=== PATIENT | male | born 1945 | race Caucasian/White ===

== ENCOUNTER 2018-11-27 12:14 | Inpatient (IN) | payer MEDICARE, BC ==
[~2018-11-27] VITALS: Ht 177.8 cm; Wt 75.7 kg
[~2018-11-27 12:14] MED LIST: CARB1TAB22 PO; CLONAZEPAM1 MG PO; PRAM0.5T PO
[2018-11-27] MEDS ORDERED: IV NORMAL SALINE 1000ML BAG 1,000 ML IV SCH (12:30)
--- NOTE | 2018-11-27 12:34 | PHYS DOC ---
Past Medical History Past Medical History: High Cholesterol Additional Past Medical Histor: PARKINSONS Past Surgical History: No Surgical History Alcohol Use: None Drug Use: None Adult General Chief Complaint Chief Complaint: INSECT BITE HPI HPI Patient is a 73-year-old male, who was removing a beehive, when he was stung about 20 times, primarily on his scalp. He states he has one prior episode of a bee sting when he developed "an allergic reaction" but he is uncertain exactly what the reaction was. EMS was called, and the patient was given 50 mg the Benadryl intravenously, and 0.3 mg of epinephrine intramuscularly. He reports generalized fatigue at this time. He denies any focal pain, shortness of breath, lightheadedness, headache, chest pain, or any focal weakness. There are no alleviating or exacerbating factors to his symptoms. Review of Systems Review of Systems Constitutional: Denies fever or chills [] Eyes: Denies change in visual acuity, redness, or eye pain [] HENT: Denies nasal congestion or sore throat [] Respiratory: Denies cough or shortness of breath [] Cardiovascular: The patient denies any shortness of breath, chest pain, pa lpitations, or orthopnea[] GI: Denies abdominal pain, nausea, vomiting, bloody stools or diarrhea [] : Denies dysuria or hematuria [] Musculoskeletal: Denies back pain or joint pain [] Integument: Denies rash or skin lesions [] Neurologic: Denies headache, focal weakness or sensory changes [] Endocrine: Denies polyuria or polydipsia [] All other systems were reviewed and found to be within normal limits, except as documented in this note. Current Medications Current Medications Current Medications Medications (Trade) Dose Ordered Sig/[facility] Start Time Stop Time Status Last Admin Dose Admin Aspirin (Children'S Aspirin) 324 mg 1X ONCE 11/27/18 16:00 11/27/18 16:01 Famotidine (Pepcid Vial) 20 mg 1X ONCE 11/27/18 12:45 11/27/18 12:46 DC 11/27/18 12:54 20 MG Sodium Chloride 1,000 ml @ 1,000 mls/hr Q1H 11/27/18 12:30 11/27/18 13:29 DC 11/27/18 12:50 1,000 MLS/HR Allergies Allergies Allergies Coded Allergies Type Severity Reaction Last Updated Verified No Known Drug Allergies 03/14/18 No Physical Exam Physical Exam PHYSICAL EXAM: CONSTITUTIONAL: Well developed, well nourished HEAD: normocephalic, atraumatic EENT: PERRL, EOMI. Conjunctivae normal color, sclerae non-icteric; moist mucous membranes. NECK: Supple, non-tender; no meningismus. LUNGS: Lungs CTA, breathing even and unlabored. Normal air movement. HEART: Regular rate and rhythm, no murmur CHEST: No deformity; non-tender ABDOMEN: The abdomen is soft, and non-tender, no masses or bruits. EXTREM: Normal ROM; no deformity, no calf tenderness. Normal pulses palpable in all extremities. There is no pedal edema. SKIN: No rash; no diaphoresis NEURO: Alert; normal speech and cognition; CN's grossly intact; strength grossly intact without focal deficit. Cogwheel rigidity is noted in the extremities. BACK: No CVA TTP. Current Patient Data Vital Signs Vital Signs Date Time Temp Pulse Resp B/P (MAP) Pulse Ox O2 Delivery O2 Flow Rate FiO2 11/27/18 12:28 97.9 79 18 169/73 (105) 98 Room Air 97.9 Lab Values Laboratory Tests Test 11/27/18 13:03 11/27/18 15:12 White Blood Count 10.3 x10^3/uL (4.0-11.0) Red Blood Count 4.21 x10^6/uL (4.30-5.70) L Hemoglobin 14.1 g/dL (13.0-17.5) Hematocrit 41.2 % (39.0-53.0) Mean Corpuscular Volume 98 fL (79-100) Mean Corpuscular Hemoglobin 34 pg (25-35) Mean Corpuscular Hemoglobin Concent 34 g/dL (31-37) Red Cell Distribution Width 13.2 % (11.5-14.5) Platelet Count 187 x10^3/uL (140-400) Neutrophils (%) (Auto) 90 % (31-73) H Lymphocytes (%) (Auto) 6 % (24-48) L Monocytes (%) (Auto) 4 % (0-9) Eosinophils (%) (Auto) 0 % (0-3) Basophils (%) (Auto) 0 % (0-3) Neutrophils # (Auto) 9.2 x10^3/uL (1.8-7.7) H Lymphocytes # (Auto) 0.6 x10^3/uL (1.0-4.8) L Monocytes # (Auto) 0.4 x10^3/uL (0.0-1.1) Eosinophils # (Auto) 0.0 x10^3/uL (0.0-0.7) Basophils # (Auto) 0.0 x10^3/uL (0.0-0.2) Segmented Neutrophils % 72 % (35-66) H Band Neutrophils % 9 % (0-9) Lymphocytes % 10 % (24-48) L Monocytes % 8 % (0-10) Eosinophils % 1 % (0-5) Platelet Estimate Adequate (ADEQUATE) Sodium Level 142 mmol/L (136-145) Potassium Level 4.2 mmol/L (3.5-5.1) Chloride Level 105 mmol/L (98-107) Carbon Dioxide Level 30 mmol/L (21-32) Anion Gap 7 (6-14) Blood Urea Nitrogen 12 mg/dL (8-26) Creatinine 1.1 mg/dL (0.7-1.3) Estimated GFR (Cockcroft-Gault) 66.0 Glucose Level 155 mg/dL (70-99) H Calcium Level 9.6 mg/dL (8.5-10.1) Troponin I Quantitative 0.061 ng/mL (0.000-0.055) 0.289 ng/mL (0.000-0.055) Laboratory Tests 11/27/18 13:03 Laboratory Tests 11/27/18 13:03 EKG EKG [] Normal sinus rhythm a rate of 82 beats for minute, left axis deviation, normal intervals, there are no acute ischemic ST/T changes. Repeat EKG, done at approximately 4 PM, shows no acute change or ischemic changes compared to patient's prior EKG. Radiology/Procedures Radiology/Procedures [] Course & Med Decision Making Course & Med Decision Making Pertinent Lab studies reviewed. (See chart for details) []4:00 PM: The patient's condition remains stable. His troponin has serially elevated. The etiology of this is uncertain, the patient appears much more coherent and strong at this time. It is possible that his elevated troponin is secondary either to the epinephrine her stress from an allergic reaction, the hospitalist was consulted and will admit the patient for further observation and treatment. Dragon Disclaimer Dragon Disclaimer This electronic medical record was generated, in whole or in part, using a voice recognition dictation system. Departure Departure Impression: Primary Impression: Allergic reaction Additional Impression: Elevated troponin Disposition: 09 ADMITTED INPATIENT Admitting Physician: DONALD Condition: STABLE Referrals: ANTOINE HALL MD (PCP) Problem Qualifiers DIANA INFANTE MD Nov 27, 2018 12:34
[2018-11-27] MEDS ORDERED: FAMOTIDINE 20 MG/2 ML VIAL IVP ONE (12:45)
[2018-11-27 13:15] LABS: BASO % 0 % (0-3); EOS % 0 % (0-3); HEMATOCRIT 41.2 % (39.0-53.0); HEMOGLOBIN 14.1 g/dL (13.0-17.5); LYMPH # 0.6 x10^3/uL (1.0-4.8); LYMPH % 6 % (24-48); MEAN CORPUSCULAR HEMOGLOBIN 34 pg (25-35); MEAN CORPUSCULAR HGB CONC 34 g/dL (31-37); MEAN CORPUSCULAR VOLUME 98 fL (79-100); MONO # 0.4 x10^3/uL (0.0-1.1); MONO % 4 % (0-9); NEUT # 9.2 x10^3/uL (1.8-7.7); NEUT % 90 % (31-73); PLATELET COUNT 187 x10^3/uL (140-400); RED BLOOD COUNT 4.21 x10^6/uL (4.30-5.70); RED CELL DISTRIBUTION WIDTH 13.2 % (11.5-14.5); WHITE BLOOD COUNT 10.3 x10^3/uL (4.0-11.0)
[2018-11-27 13:27] LABS: CALCIUM 9.6 mg/dL (8.5-10.1); CREATININE 1.1 mg/dL (0.7-1.3); POTASSIUM 4.2 mmol/L (3.5-5.1)
--- NOTE | 2018-11-27 13:58 | EKG ---
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
[2018-11-27 14:48] LABS: % BANDS 9 % (0-9); % EOS 1 % (0-5); % LYMPHS 10 % (24-48); % MONOS 8 % (0-10); % SEGS 72 % (35-66)
[2018-11-27 14:49] LABS: PLT ESTIMATE ADEQUATE (ADEQUATE)
[2018-11-27] MEDS ORDERED: ASPIRIN CHEWABLE 81 MG TABLET. PO ONE (16:00)
--- NOTE | 2018-11-27 16:05 | EKG ---
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
--- NOTE | 2018-11-27 17:35 | PDOC1 ---
History and Physical Date of Admission Date of Admission DATE: 11/27/18 TIME: 17:33 Identification/Chief Complaint Chief Complaint SEEN IN ER , 73-year-old male, who was removing a beehive, when he was stung about 20 times, primarily on his scalp., LIPS, He states he has one prior episode of a bee sting when he developed "an allergic reaction" but he is uncertain exactly what the reaction was. EMS was called, and the patient was given 50 mg the Benadryl intravenously, and 0.3 mg of epinephrine intramuscularly. He reports generalized fatigue at this time. He denies any focal pain, shortness of breath, lightheadedness, headache, chest pain, or any focal weakness. LIPS SWOLLEN SLIGHTLY. Past Medical History Past Medical History Past Medical History Past Medical History: High Cholesterol Additional Past Medical Histor: PARKINSONS Past Surgical History: No Surgical History Alcohol Use: None Drug Use: None PAST MEDICAL HISTORY: Significant for history of Parkinson's. No significant history of tobacco use. No prior history of pneumothorax. History of night terrors. PAST SURGICAL HISTORY: Hernia repair. SOCIAL HISTORY: Nonsmoker. Lives with his . ALLERGIES: None. FHX HYPERLIPIDEMIA Cardiovascular: HTN CENTRAL NERVOUS SYSTEM: Other (parkinson's ) Past Surgical History Past Surgical History: Hernia Repair Family History Family History: No Significant, High Cholestrol Social History Smoke: No ALCOHOL: none Drugs: None Current Problem List Problem List Problems Medical Problems: (1) Allergic reaction Status: Acute (2) Elevated troponin Status: Acute Current Medications Current Medications Current Medications Sodium Chloride 1,000 ml @ 1,000 mls/hr Q1H IV Last administered on 11/27/18at 12:50; Start 11/27/18 at 12:30; Stop 11/27/18 at 13:29; Status DC Famotidine (Pepcid Vial) 20 mg 1X ONCE IVP Last administered on 11/27/18at 12:54; Start 11/27/18 at 12:45; Stop 11/27/18 at 12:46; Status DC Aspirin (Children'S Aspirin) 324 mg 1X ONCE PO Last administered on 11/27/18at 16:17; Start 11/27/18 at 16:00; Stop 11/27/18 at 16:01; Status DC Active Scripts Active Reported Clonazepam 1 Mg Tablet 1.5 Tab PO QHS Pramipexole Dihydrochloride (Pramipexole Di-Hcl) 0.5 Mg Tablet 0.5 Mg PO TID Carbidopa-Levodopa 25-100 Tab (Carbidopa/Levodopa) 1 Each Tablet 25-100 Mg PO QID Allergies Allergies: Coded Allergies: No Known Drug Allergies (Unverified , 03/14/18) ROS Review of System Review of Systems Review of Systems Constitutional: Denies fever or chills [] Eyes: Denies change in visual acuity, redness, or eye pain [] LIPS LESS SWOLLEN AFTER STINGERS REMOVED RIGHT UPPER LIP HENT: Denies nasal congestion or sore throat [] Respiratory: Denies cough or shortness of breath [] Cardiovascular: The patient denies any shortness of breath, chest pain, palpitations, or orthopnea[] GI: Denies abdominal pain, nausea, vomiting, bloody stools or diarrhea [] : Denies dysuria or hematuria [] Musculoskeletal: Denies back pain or joint pain [] Integument: Denies rash or skin lesions [] Neurologic: Denies headache, focal weakness or sensory changes [] Endocrine: Denies polyuria or polydipsia [] 14 PT systems were reviewed and found to be within normal limits, except as documented Physical Exam Physical Exam Physical Exam Physical Exam PHYSICAL EXAM: CONSTITUTIONAL: Well developed, well nourished HEAD: normocephalic, atraumatic EENT: PERRL, EOMI. Conjunctivae normal color, sclerae non-icteric; moist mucous membranes. NECK: Supple, non-tender; no meningismus. LUNGS: Lungs CTA, breathing even and unlabored. Normal air movement. HEART: Regular rate and rhythm, no murmur CHEST: No deformity; non-tender ABDOMEN: The abdomen is soft, and non-tender, no masses or bruits. EXTREM: Normal ROM; no deformity, no calf tenderness. Normal pulses palpable in all extremities. There is no pedal edema. SKIN: No rash; no diaphoresis NEURO: Alert; normal speech and cognition; CN's grossly intact; strength grossly intact without focal deficit. Cogwheel rigidity is noted in the extremities. BACK: No CVA TTP. General: Alert, Oriented X3, Cooperative, No acute distress, mild distress HEENT: EOMI, Mucous membr. moist/pink Lungs: Clear to auscultation, Normal air movement Heart: RRR Breasts: Not examined Abdomen: Normal bowel sounds, Soft Rectal Exam: not examined PELVIC: Examination not indicated Extremities: No cyanosis Neuro: Normal speech, Strength at 5/5 X4 ext, Cranial nerves 3-12 NL Psych/Mental Status: Mental status NL, Mood NL Vitals Vitals Vital Signs Date Time Temp Pulse Resp B/P (MAP) Pulse Ox O2 Delivery O2 Flow Rate FiO2 11/27/18 17:14 78 16 133/59 (83) 98 Room Air 11/27/18 12:28 97.9 97.9 Labs Labs Laboratory Tests Test 11/27/18 13:03 11/27/18 15:12 White Blood Count 10.3 x10^3/uL (4.0-11.0) Red Blood Count 4.21 x10^6/uL (4.30-5.70) Hemoglobin 14.1 g/dL (13.0-17.5) Hematocrit 41.2 % (39.0-53.0) Mean Corpuscular Volume 98 fL (79-100) Mean Corpuscular Hemoglobin 34 pg (25-35) Mean Corpuscular Hemoglobin Concent 34 g/dL (31-37) Red Cell Distribution Width 13.2 % (11.5-14.5) Platelet Count 187 x10^3/uL (140-400) Neutrophils (%) (Auto) 90 % (31-73) Lymphocytes (%) (Auto) 6 % (24-48) Monocytes (%) (Auto) 4 % (0-9) Eosinophils (%) (Auto) 0 % (0-3) Basophils (%) (Auto) 0 % (0-3) Neutrophils # (Auto) 9.2 x10^3/uL (1.8-7.7) Lymphocytes # (Auto) 0.6 x10^3/uL (1.0-4.8) Monocytes # (Auto) 0.4 x10^3/uL (0.0-1.1) Eosinophils # (Auto) 0.0 x10^3/uL (0.0-0.7) Basophils # (Auto) 0.0 x10^3/uL (0.0-0.2) Segmented Neutrophils % 72 % (35-66) Band Neutrophils % 9 % (0-9) Lymphocytes % 10 % (24-48) Monocytes % 8 % (0-10) Eosinophils % 1 % (0-5) Platelet Estimate Adequate (ADEQUATE) Sodium Level 142 mmol/L (136-145) Potassium Level 4.2 mmol/L (3.5-5.1) Chloride Level 105 mmol/L (98-107) Carbon Dioxide Level 30 mmol/L (21-32) Anion Gap 7 (6-14) Blood Urea Nitrogen 12 mg/dL (8-26) Creatinine 1.1 mg/dL (0.7-1.3) Estimated GFR (Cockcroft-Gault) 66.0 Glucose Level 155 mg/dL (70-99) Calcium Level 9.6 mg/dL (8.5-10.1) Troponin I Quantitative 0.061 ng/mL (0.000-0.055) 0.289 ng/mL (0.000-0.055) Laboratory Tests Test 11/27/18 13:03 11/27/18 15:12 White Blood Count 10.3 x10^3/uL (4.0-11.0) Red Blood Count 4.21 x10^6/uL (4.30-5.70) Hemoglobin 14.1 g/dL (13.0-17.5) Hematocrit 41.2 % (39.0-53.0) Mean Corpuscular Volume 98 fL (79-100) Mean Corpuscular Hemoglobin 34 pg (25-35) Mean Corpuscular Hemoglobin Concent 34 g/dL (31-37) Red Cell Distribution Width 13.2 % (11.5-14.5) Platelet Count 187 x10^3/uL (140-400) Neutrophils (%) (Auto) 90 % (31-73) Lymphocytes (%) (Auto) 6 % (24-48) Monocytes (%) (Auto) 4 % (0-9) Eosinophils (%) (Auto) 0 % (0-3) Basophils (%) (Auto) 0 % (0-3) Neutrophils # (Auto) 9.2 x10^3/uL (1.8-7.7) Lymphocytes # (Auto) 0.6 x10^3/uL (1.0-4.8) Monocytes # (Auto) 0.4 x10^3/uL (0.0-1.1) Eosinophils # (Auto) 0.0 x10^3/uL (0.0-0.7) Basophils # (Auto) 0.0 x10^3/uL (0.0-0.2) Segmented Neutrophils % 72 % (35-66) Band Neutrophils % 9 % (0-9) Lymphocytes % 10 % (24-48) Monocytes % 8 % (0-10) Eosinophils % 1 % (0-5) Platelet Estimate Adequate (ADEQUATE) Sodium Level 142 mmol/L (136-145) Potassium Level 4.2 mmol/L (3.5-5.1) Chloride Level 105 mmol/L (98-107) Carbon Dioxide Level 30 mmol/L (21-32) Anion Gap 7 (6-14) Blood Urea Nitrogen 12 mg/dL (8-26) Creatinine 1.1 mg/dL (0.7-1.3) Estimated GFR (Cockcroft-Gault) 66.0 Glucose Level 155 mg/dL (70-99) Calcium Level 9.6 mg/dL (8.5-10.1) Troponin I Quantitative 0.061 ng/mL (0.000-0.055) 0.289 ng/mL (0.000-0.055) VTE Prophylaxis Ordered VTE Prophylaxis Devices: No VTE Pharmacological Prophylaxi: Yes Assessment/Plan Assessment/Plan IMPRESSION 1. MULTIPLE BEE STINGS WITH ANAPHYLAXIS 2. Parkinson's disease with bradykinesia 3. troponin i elevation PLAN ADMIT IV STEROID TAPER IV BENADRYl 25 MG Q 6 HRS dvt prophylaxis cardiology consult echo serial troponin i iv pepsid bid 56 min pt exam, chart review, > 50% of time spent with exam, chart review, pt care coordination VENANCIO BENSON MD Nov 27, 2018 17:35
[2018-11-27] MEDS ORDERED: diphenhydrAMINE 50 MG/ML VIAL IVP PRN (17:45)
[2018-11-27 19:20] VITALS: BP 114/57
[2018-11-27] MEDS: HEPARIN for SUB-Q USE 5,000 UNIT/ML VIAL. SQ SCH (22:00)
[2018-11-27] MEDS: PRAMIPEXOLE 0.25 MG TABLET. PO SCH (23:10)
[2018-11-27] MEDS: CARBIDOPA/LEVODOPA 25/100MG TABLET PO SCH (23:11)
[2018-11-27] MEDS: clonazePAM 0.5 MG TABLET PO SCH (23:11)
[2018-11-27] MEDS: methylPREDNISolone SOD SUCC PF 125 MG/2 ML VIAL. IV SCH (23:11)
[2018-11-27 23:34] VITALS: BP 94/40
[2018-11-28 03:09] VITALS: BP 104/44
[2018-11-28] MEDS: HEPARIN for SUB-Q USE 5,000 UNIT/ML VIAL. SQ SCH ×3 (06:00→21:41)
[2018-11-28] MEDS: methylPREDNISolone SOD SUCC PF 125 MG/2 ML VIAL. IV SCH ×2 (06:23→16:26)
[2018-11-28 07:00] VITALS: BP 107/45
--- NOTE | 2018-11-28 07:30 | PDOC ---
PROGRESS NOTES History of Present Illness History of Present Illness VTE Prophylaxis Ordered VTE Prophylaxis Devices: No VTE Pharmacological Prophylaxi: Yes Assessment/Plan Assessment/Plan IMPRESSION 1. MULTIPLE BEE STINGS WITH ANAPHYLAXIS 2. Parkinson's disease with bradykinesia 3. troponin i elevation PLAN ADMIT IV STEROID TAPER IV BENADRYl 25 MG Q 6 HRS dvt prophylaxis cardiology consult echo serial troponin i iv pepsid bid 39 min pt exam, chart review, > 50% of time spent with exam, chart review, pt care coordination Vitals Vitals Vital Signs Date Time Temp Pulse Resp B/P (MAP) Pulse Ox O2 Delivery O2 Flow Rate FiO2 11/28/18 03:09 99.6 62 18 104/44 (64) 98 Room Air 99.6 Physical Exam General: Alert, Oriented X3, Cooperative, No acute distress Heart: Regular rate, Normal S1, Normal S2 Lungs: Clear Abdomen: Normal bowel sounds, Soft Extremities: No clubbing, No cyanosis, No edema Skin: No significant lesion Labs LABS Laboratory Tests Test 11/27/18 13:03 11/27/18 15:12 11/28/18 03:30 White Blood Count 10.3 x10^3/uL (4.0-11.0) Red Blood Count 4.21 x10^6/uL (4.30-5.70) Hemoglobin 14.1 g/dL (13.0-17.5) Hematocrit 41.2 % (39.0-53.0) Mean Corpuscular Volume 98 fL (79-100) Mean Corpuscular Hemoglobin 34 pg (25-35) Mean Corpuscular Hemoglobin Concent 34 g/dL (31-37) Red Cell Distribution Width 13.2 % (11.5-14.5) Platelet Count 187 x10^3/uL (140-400) Neutrophils (%) (Auto) 90 % (31-73) Lymphocytes (%) (Auto) 6 % (24-48) Monocytes (%) (Auto) 4 % (0-9) Eosinophils (%) (Auto) 0 % (0-3) Basophils (%) (Auto) 0 % (0-3) Neutrophils # (Auto) 9.2 x10^3/uL (1.8-7.7) Lymphocytes # (Auto) 0.6 x10^3/uL (1.0-4.8) Monocytes # (Auto) 0.4 x10^3/uL (0.0-1.1) Eosinophils # (Auto) 0.0 x10^3/uL (0.0-0.7) Basophils # (Auto) 0.0 x10^3/uL (0.0-0.2) Segmented Neutrophils % 72 % (35-66) Band Neutrophils % 9 % (0-9) Lymphocytes % 10 % (24-48) Monocytes % 8 % (0-10) Eosinophils % 1 % (0-5) Platelet Estimate Adequate (ADEQUATE) Sodium Level 142 mmol/L (136-145) Potassium Level 4.2 mmol/L (3.5-5.1) Chloride Level 105 mmol/L (98-107) Carbon Dioxide Level 30 mmol/L (21-32) Anion Gap 7 (6-14) Blood Urea Nitrogen 12 mg/dL (8-26) Creatinine 1.1 mg/dL (0.7-1.3) Estimated GFR (Cockcroft-Gault) 66.0 Glucose Level 155 mg/dL (70-99) Calcium Level 9.6 mg/dL (8.5-10.1) Troponin I Quantitative 0.061 ng/mL (0.000-0.055) 0.289 ng/mL (0.000-0.055) 0.045 ng/mL (0.000-0.055) Assessment and Plan Assessmemt and Plan Problems Medical Problems: (1) Allergic reaction Status: Acute (2) Anaphylactic reaction to bee sting Status: Acute (3) Elevated troponin Status: Acute (4) Parkinson disease Status: Chronic Comment Review of Relevant I have reviewed the following items dori (where applicable) has been applied. Labs Laboratory Tests Test 11/27/18 13:03 11/27/18 15:12 11/28/18 03:30 White Blood Count 10.3 x10^3/uL (4.0-11.0) Red Blood Count 4.21 x10^6/uL (4.30-5.70) Hemoglobin 14.1 g/dL (13.0-17.5) Hematocrit 41.2 % (39.0-53.0) Mean Corpuscular Volume 98 fL (79-100) Mean Corpuscular Hemoglobin 34 pg (25-35) Mean Corpuscular Hemoglobin Concent 34 g/dL (31-37) Red Cell Distribution Width 13.2 % (11.5-14.5) Platelet Count 187 x10^3/uL (140-400) Neutrophils (%) (Auto) 90 % (31-73) Lymphocytes (%) (Auto) 6 % (24-48) Monocytes (%) (Auto) 4 % (0-9) Eosinophils (%) (Auto) 0 % (0-3) Basophils (%) (Auto) 0 % (0-3) Neutrophils # (Auto) 9.2 x10^3/uL (1.8-7.7) Lymphocytes # (Auto) 0.6 x10^3/uL (1.0-4.8) Monocytes # (Auto) 0.4 x10^3/uL (0.0-1.1) Eosinophils # (Auto) 0.0 x10^3/uL (0.0-0.7) Basophils # (Auto) 0.0 x10^3/uL (0.0-0.2) Segmented Neutrophils % 72 % (35-66) Band Neutrophils % 9 % (0-9) Lymphocytes % 10 % (24-48) Monocytes % 8 % (0-10) Eosinophils % 1 % (0-5) Platelet Estimate Adequate (ADEQUATE) Sodium Level 142 mmol/L (136-145) Potassium Level 4.2 mmol/L (3.5-5.1) Chloride Level 105 mmol/L (98-107) Carbon Dioxide Level 30 mmol/L (21-32) Anion Gap 7 (6-14) Blood Urea Nitrogen 12 mg/dL (8-26) Creatinine 1.1 mg/dL (0.7-1.3) Estimated GFR (Cockcroft-Gault) 66.0 Glucose Level 155 mg/dL (70-99) Calcium Level 9.6 mg/dL (8.5-10.1) Troponin I Quantitative 0.061 ng/mL (0.000-0.055) 0.289 ng/mL (0.000-0.055) 0.045 ng/mL (0.000-0.055) Laboratory Tests Test 11/27/18 13:03 11/27/18 15:12 11/28/18 03:30 White Blood Count 10.3 x10^3/uL (4.0-11.0) Red Blood Count 4.21 x10^6/uL (4.30-5.70) Hemoglobin 14.1 g/dL (13.0-17.5) Hematocrit 41.2 % (39.0-53.0) Mean Corpuscular Volume 98 fL (79-100) Mean Corpuscular Hemoglobin 34 pg (25-35) Mean Corpuscular Hemoglobin Concent 34 g/dL (31-37) Red Cell Distribution Width 13.2 % (11.5-14.5) Platelet Count 187 x10^3/uL (140-400) Neutrophils (%) (Auto) 90 % (31-73) Lymphocytes (%) (Auto) 6 % (24-48) Monocytes (%) (Auto) 4 % (0-9) Eosinophils (%) (Auto) 0 % (0-3) Basophils (%) (Auto) 0 % (0-3) Neutrophils # (Auto) 9.2 x10^3/uL (1.8-7.7) Lymphocytes # (Auto) 0.6 x10^3/uL (1.0-4.8) Monocytes # (Auto) 0.4 x10^3/uL (0.0-1.1) Eosinophils # (Auto) 0.0 x10^3/uL (0.0-0.7) Basophils # (Auto) 0.0 x10^3/uL (0.0-0.2) Segmented Neutrophils % 72 % (35-66) Band Neutrophils % 9 % (0-9) Lymphocytes % 10 % (24-48) Monocytes % 8 % (0-10) Eosinophils % 1 % (0-5) Platelet Estimate Adequate (ADEQUATE) Sodium Level 142 mmol/L (136-145) Potassium Level 4.2 mmol/L (3.5-5.1) Chloride Level 105 mmol/L (98-107) Carbon Dioxide Level 30 mmol/L (21-32) Anion Gap 7 (6-14) Blood Urea Nitrogen 12 mg/dL (8-26) Creatinine 1.1 mg/dL (0.7-1.3) Estimated GFR (Cockcroft-Gault) 66.0 Glucose Level 155 mg/dL (70-99) Calcium Level 9.6 mg/dL (8.5-10.1) Troponin I Quantitative 0.061 ng/mL (0.000-0.055) 0.289 ng/mL (0.000-0.055) 0.045 ng/mL (0.000-0.055) Medications Current Medications Sodium Chloride 1,000 ml @ 1,000 mls/hr Q1H IV Last administered on 11/27/18at 12:50; Start 11/27/18 at 12:30; Stop 11/27/18 at 13:29; Status DC Famotidine (Pepcid Vial) 20 mg 1X ONCE IVP Last administered on 11/27/18at 12:54; Start 11/27/18 at 12:45; Stop 11/27/18 at 12:46; Status DC Aspirin (Children'S Aspirin) 324 mg 1X ONCE PO Last administered on 11/27/18at 16:17; Start 11/27/18 at 16:00; Stop 11/27/18 at 16:01; Status DC Methylprednisolone Sodium Succinate (SOLU-Medrol 125MG VIAL) 125 mg Q8HRS IV Last administered on 11/28/18at 06:23; Start 11/27/18 at 22:00; Stop 11/28/18 at 14:01 Methylprednisolone Sodium Succinate (SOLU-Medrol 125MG VIAL) 80 mg Q8HRS IV ; Start 11/28/18 at 22:00; Stop 11/29/18 at 14:01 Diphenhydramine HCl (Benadryl) 25 mg PRN Q6HRS PRN IVP ITCHING; Start 11/27/18 at 17:45; Stop 11/28/18 at 12:00 Carbidopa/Levodopa (Sinemet 25/100) 1 tab QID PO Last administered on 11/27/18at 23:11; Start 11/27/18 at 21:00 Clonazepam (KlonoPIN) 1.5 mg QHS PO Last administered on 11/27/18at 23:11; Start 11/27/18 at 21:00 Pramipexole Dihydrochloride (miraPEX) 0.5 mg [id number] PO Last administered on 11/27/18at 23:10; Start 11/27/18 at 21:00 Heparin Sodium (Porcine) (Heparin Sodium) 5,000 unit Q8HRS SQ ; Start 11/27/18 at 22:00 Active Scripts Active Reported Clonazepam 1 Mg Tablet 1.5 Tab PO QHS Pramipexole Dihydrochloride (Pramipexole Di-Hcl) 0.5 Mg Tablet 0.5 Mg PO TID Carbidopa-Levodopa 25-100 Tab (Carbidopa/Levodopa) 1 Each Tablet 25-100 Mg PO QID Vitals/I & O Vital Sign - Last 24 Hours 11/27/18 11/27/18 11/27/18 11/27/18 12:28 13:30 14:30 15:30 Temp 97.9 97.9 Pulse 79 80 70 70 Resp 18 16 16 18 B/P (MAP) 169/73 (105) 139/63 (88) 100/54 (69) 132/65 (87) Pulse Ox 98 99 96 100 O2 Delivery Room Air Room Air Room Air Room Air 11/27/18 11/27/18 11/27/18 11/27/18 16:21 17:14 18:19 19:20 Temp 97.9 97.9 Pulse 78 78 69 77 Resp 18 16 18 18 B/P (MAP) 148/70 (96) 133/59 (83) 98/51 (67) 114/57 (76) Pulse Ox 98 98 96 99 O2 Delivery Room Air Room Air Room Air Room Air 11/27/18 11/28/18 23:34 03:09 Temp 97.7 99.6 97.7 99.6 Pulse 56 62 Resp 18 18 B/P (MAP) 94/40 (58) 104/44 (64) Pulse Ox 97 98 O2 Delivery Room Air Room Air Intake and Output 11/27/18 11/27/18 11/28/18 15:00 23:00 07:00 Intake Total 1000 ml 250 ml 200 ml Output Total 420 ml Balance 1000 ml 250 ml -220 ml VENANCIO BENSON MD Nov 28, 2018 07:30
[2018-11-28] MEDS: CARBIDOPA/LEVODOPA 25/100MG TABLET PO SCH ×4 (08:24→21:36)
[2018-11-28] MEDS: PRAMIPEXOLE 0.25 MG TABLET. PO SCH ×3 (08:24→21:00)
--- NOTE | 2018-11-28 09:26 | PDOC2 ---
CARDIAC CONSULT DATE OF CONSULT Date of Consult DATE: 11/28/18 TIME: 08:53 REASON FOR CONSULT Reason for Consult: Bee sting, elevated troponin REFERRING PHYSICIAN Referring Physician: Fullbright SOURCE Source: Chart review, Patient HISTORY OF PRESENT ILLNESS HISTORY OF PRESENT ILLNESS This is a pleasant 73 yo male admitted for complains of almost passing out and bee sting. 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 He was stung in several places mainly on his left arm yesterday and 10 minutes later he felt like he was going to passed out. He then sat on the tailgate of his truck and one of the stonecutter assistant noticed him slouching and approached and help was called. He was also hallucinating at that time seeing his surroundings all green like all grass. No SOA or chest pain or palpitations but described having possibly hives to his left arm. He has been stung in the past but the reaction was not as bad as this one. He does not carry any epipen as he felt he did not need it. He has 3 hives at his home with honey bees. N prior hx of CAD, VTE, CVA or any arrhythmias. PAST MEDICAL HISTORY Cardiovascular: Hyperlipidemia CENTRAL NERVOUS SYSTEM: Other (Parkinsons) GI: GERD (barrets) Musculoskeletal: Osteoarthritis PAST SURGICAL HISTORY Past Surgical History: Cataract Removal, Hernia Repair (right groin) FAMILY HISTORY Family History noncontributory SOCIAL HISTORY Smoke: No ALCOHOL: none Drugs: None Lives: with Family CURRENT MEDICATIONS CURRENT MEDICATIONS Current Medications Medications (Trade) Dose Ordered Sig/Chasity Route PRN Reason Start Time Stop Time Status Last Admin Dose Admin Sodium Chloride 1,000 ml @ 1,000 mls/hr Q1H IV 11/27/18 12:30 11/27/18 13:29 DC 11/27/18 12:50 Famotidine (Pepcid Vial) 20 mg 1X ONCE IVP 11/27/18 12:45 11/27/18 12:46 DC 11/27/18 12:54 Aspirin (Children'S Aspirin) 324 mg 1X ONCE PO 11/27/18 16:00 11/27/18 16:01 DC 11/27/18 16:17 Methylprednisolone Sodium Succinate (SOLU-Medrol 125MG VIAL) 125 mg Q8HRS IV 11/27/18 22:00 11/28/18 14:01 11/28/18 06:23 Carbidopa/Levodopa (Sinemet 25/100) 1 tab QID PO 11/27/18 21:00 11/28/18 08:24 Clonazepam (KlonoPIN) 1.5 mg QHS PO 11/27/18 21:00 11/27/18 23:11 Pramipexole Dihydrochloride (miraPEX) 0.5 mg [id number] PO 11/27/18 21:00 11/28/18 08:24 ALLERGIES ALLERGIES: Coded Allergies: No Known Drug Allergies (Unverified , 03/14/18) ROS Review of System 14 point ROS evaluated with pertinent positives noted per HPI PHYSICAL EXAM General: Alert, Oriented X3, Cooperative, No acute distress HEENT: Atraumatic, Mucous membr. moist/pink Lungs: Clear to auscultation, Normal air movement Heart: Regular rate (SR without ectopies), Normal S1, Normal S2, No murmurs Abdomen: Soft, No tenderness Extremities: No cyanosis, No edema Skin: No breakdown, No significant lesion Neuro: Normal speech, Sensation intact, Other (hand tremors) Psych/Mental Status: Mental status NL, Mood NL MUSCULOSKELETAL: Osteoarthritic changes both hands VITALS/I&O VITALS/I&O: Vital Signs Date Time Temp Pulse Resp B/P (MAP) Pulse Ox O2 Delivery O2 Flow Rate FiO2 11/28/18 07:00 98.4 62 18 107/45 (65) 96 Room Air 98.4 I & O 11/27/18 11/27/18 11/28/18 15:00 23:00 07:00 Intake Total 1000 ml 250 ml 200 ml Output Total 570 ml Balance 1000 ml 250 ml -370 ml LABS Lab: Laboratory Tests Test 11/27/18 13:03 11/27/18 15:12 11/28/18 03:30 White Blood Count 10.3 x10^3/uL (4.0-11.0) Red Blood Count 4.21 x10^6/uL (4.30-5.70) L Hemoglobin 14.1 g/dL (13.0-17.5) Hematocrit 41.2 % (39.0-53.0) Mean Corpuscular Volume 98 fL (79-100) Mean Corpuscular Hemoglobin 34 pg (25-35) Mean Corpuscular Hemoglobin Concent 34 g/dL (31-37) Red Cell Distribution Width 13.2 % (11.5-14.5) Platelet Count 187 x10^3/uL (140-400) Neutrophils (%) (Auto) 90 % (31-73) H Lymphocytes (%) (Auto) 6 % (24-48) L Monocytes (%) (Auto) 4 % (0-9) Eosinophils (%) (Auto) 0 % (0-3) Basophils (%) (Auto) 0 % (0-3) Neutrophils # (Auto) 9.2 x10^3/uL (1.8-7.7) H Lymphocytes # (Auto) 0.6 x10^3/uL (1.0-4.8) L Monocytes # (Auto) 0.4 x10^3/uL (0.0-1.1) Eosinophils # (Auto) 0.0 x10^3/uL (0.0-0.7) Basophils # (Auto) 0.0 x10^3/uL (0.0-0.2) Segmented Neutrophils % 72 % (35-66) H Band Neutrophils % 9 % (0-9) Lymphocytes % 10 % (24-48) L Monocytes % 8 % (0-10) Eosinophils % 1 % (0-5) Platelet Estimate Adequate (ADEQUATE) Sodium Level 142 mmol/L (136-145) Potassium Level 4.2 mmol/L (3.5-5.1) Chloride Level 105 mmol/L (98-107) Carbon Dioxide Level 30 mmol/L (21-32) Anion Gap 7 (6-14) Blood Urea Nitrogen 12 mg/dL (8-26) Creatinine 1.1 mg/dL (0.7-1.3) Estimated GFR (Cockcroft-Gault) 66.0 Glucose Level 155 mg/dL (70-99) H Calcium Level 9.6 mg/dL (8.5-10.1) Troponin I Quantitative 0.061 ng/mL (0.000-0.055) 0.289 ng/mL (0.000-0.055) 0.045 ng/mL (0.000-0.055) Laboratory Tests 11/27/18 13:03 Laboratory Tests 11/27/18 13:03 ASSESSMENT/PLAN ASSESSMENT/PLAN 1. Anaphylaxis: due to bee sting 2. Elevated troponin: due to above and epi use. Trop peaked at 0.2 with no acute changes to EKG 3. Parkinsons Recommendations 1. Baseline TTE and check lipids 2. Pt does not have an epi pen and he does takes care of honey bees, he has 3 hives at his home. Will need epi pen 3. Caution with biphasic reaction. Continue with antiinflammatory agents, defer to PCP. LEIDA HOLLIS APRN Nov 28, 2018 09:26
[2018-11-28] MEDS ORDERED: FAMOTIDINE 20 MG TABLET. PO ONE (09:30)
[2018-11-28] MEDS ORDERED: diphenhydrAMINE HCL 25 MG CAPSULE PO ONE (09:30)
[2018-11-28 11:00] VITALS: BP 102/47
--- NOTE | 2018-11-28 13:22 | NUR ---
SW following pt for dc planning. Chart reviewed and discussed with RN. Pt lives at home and admitted for allergic reaction, elevated troponin. No SW needs at this time. Will be available as needed.
--- NOTE | 2018-11-28 13:54 | CARD ---
MR#: [id number] Date of Study: 11/28/2018 Ordering Physician: VENANCIO BENSON, Referring Physician: VENANCIO BENSON, Tech: Rose Carreon APPROVED REPORT EXAM: Two-dimensional and M-mode echocardiogram with Doppler and color Doppler. Other Information Quality : AverageHR: 62bpm INDICATION Chest Pain Elevated Troponin 2D DIMENSIONS Left Atrium(2D)3.7 (1.6-4.0cm)IVSd1.1 (0.7-1.1cm) Aortic Root(2D)3.6 (2.0-3.7cm)LVDd4.9 (3.9-5.9cm) LVOT Diameter2.2 (1.8-2.4cm)PWd1.2 (0.7-1.1cm) LVDs2.9 (2.5-4.0cm)FS (%) 40.9 % SV81.8 mlLVEF(%)71.6 (>50%) Aortic Valve AoV Peak Calos.127.6cm/sAoV VTI29.2cm AO Peak GR.6.5mmHgLVOT Peak Calos.112.9cm/s LVOT VTI 28.32cmAO Mean GR.3mmHg ANDREW (VMAX)2.32fv0VAS (VTI)3.71cm2 Mitral Valve MV E Krrioyhm58.4cm/sMV DECEL [id number] MV A Tkepuslm25.5cm/sMV VGE88km E/A Ratio1.0MVA (PHT)2.62cm2 TDI E/Lateral E'10.8E/Medial E'10.2 Pulmonary Valve PV Peak Ktufeaku620.1cm/sPV Peak Grad.5mmHg Tricuspid Valve TR P. Lcwhvamc167kq/sRAP UHYRCQPU3rgHh TR Peak Gr.09zwIzJHCD70eyFq Pulmonary Vein S1 Kshlgspr17.7cm/sD2 Csgoidzn29.7cm/s PVa [id number] LEFT VENTRICLE The left ventricle is normal size. There is mild concentric left ventricular hypertrophy. The left ve ntricular systolic function is normal and the ejection fraction is within normal range. The Ejection Fraction is 55-60%. There is normal LV segmental wall motion. Transmitral Doppler flow pattern is Gra de I-abnormal relaxation pattern. RIGHT VENTRICLE The right ventricle is normal size. There is normal right ventricular wall thickness. The right ventr icular systolic function is normal. ATRIA The left atrium is borderline dilated. The right atrium size is normal. The interatrial septum is int act with no evidence for an atrial septal defect or patent foramen ovale as noted on 2-D or Doppler i maging. AORTIC VALVE The aortic valve is thickened but opens well. Doppler and Color Flow revealed no significant aortic r egurgitation. There is no significant aortic valvular stenosis. MITRAL VALVE The mitral valve is calcified. There is no evidence of mitral valve prolapse. There is no mitral valv e stenosis. Doppler and Color-flow revealed trace mitral regurgitation. TRICUSPID VALVE The tricuspid valve is normal in structure and function. Doppler and Color Flow revealed trace tricus pid regurgitation with an estimated PAP of 31 mmHg. There is no tricuspid valve stenosis. PULMONIC VALVE The pulmonic valve is not well visualized. Doppler and Color Flow revealed no pulmonic valvular regur gitation. There is no pulmonic valvular stenosis. GREAT VESSELS The aortic root is normal in size. The IVC is normal in size and collapses >50% with inspiration. PERICARDIAL EFFUSION There is no evidence of significant pericardial effusion. Critical Notification Critical Value: No <Conclusion> The left ventricular systolic function is normal and the ejection fraction is within normal range. Th e Ejection Fraction is 55-60%. There is normal LV segmental wall motion. Doppler and Color Flow revealed trace tricuspid regurgitation with an estimated PAP of 31 mmHg. Signed by : Victorino Capone, Electronically Approved : 11/28/2018 11:39:40
[2018-11-28 15:25] VITALS: BP 113/58
--- NOTE | 2018-11-28 17:29 | PDOC ---
PROGRESS NOTES Subjective Subjective Patient seen and examined The patient reports feeling better today. Objective Objective Vital Signs Date Time Temp Pulse Resp B/P (MAP) Pulse Ox O2 Delivery O2 Flow Rate FiO2 11/28/18 15:25 98.5 73 16 113/58 (76) 93 Room Air 98.5 Intake and Output 11/28/18 07:00 Intake Total 1450 ml Output Total 570 ml Balance 880 ml Intake Oral 450 ml IV Total 1000 ml Output Urine Total 570 ml Physical Exam Abdomen: Normal bowel sounds Heart: Regular rate General: No acute distress Lungs: Clear to auscultation Assessment Assessment Problems Medical Problems: (1) Allergic reaction Status: Acute (2) Anaphylactic reaction to bee sting Status: Acute (3) Elevated troponin Status: Acute (4) Parkinson disease Status: Chronic 1. Anaphylaxis: due to bee sting. She is feeling significantly better. Rhythm stable. Continue to monitor. 2. Elevated troponin: due to above and epi use. Trop peaked at 0.2 with no acute changes to EKG. Echocardiogram shows normal LV systolic function. Would continue present treatment. 3. Parkinsons Comment Review of Relevant I have reviewed the following items dori (where applicable) has been applied. Labs Laboratory Tests Test 11/27/18 13:03 11/27/18 15:12 11/28/18 03:30 White Blood Count 10.3 x10^3/uL (4.0-11.0) Red Blood Count 4.21 x10^6/uL (4.30-5.70) Hemoglobin 14.1 g/dL (13.0-17.5) Hematocrit 41.2 % (39.0-53.0) Mean Corpuscular Volume 98 fL (79-100) Mean Corpuscular Hemoglobin 34 pg (25-35) Mean Corpuscular Hemoglobin Concent 34 g/dL (31-37) Red Cell Distribution Width 13.2 % (11.5-14.5) Platelet Count 187 x10^3/uL (140-400) Neutrophils (%) (Auto) 90 % (31-73) Lymphocytes (%) (Auto) 6 % (24-48) Monocytes (%) (Auto) 4 % (0-9) Eosinophils (%) (Auto) 0 % (0-3) Basophils (%) (Auto) 0 % (0-3) Neutrophils # (Auto) 9.2 x10^3/uL (1.8-7.7) Lymphocytes # (Auto) 0.6 x10^3/uL (1.0-4.8) Monocytes # (Auto) 0.4 x10^3/uL (0.0-1.1) Eosinophils # (Auto) 0.0 x10^3/uL (0.0-0.7) Basophils # (Auto) 0.0 x10^3/uL (0.0-0.2) Segmented Neutrophils % 72 % (35-66) Band Neutrophils % 9 % (0-9) Lymphocytes % 10 % (24-48) Monocytes % 8 % (0-10) Eosinophils % 1 % (0-5) Platelet Estimate Adequate (ADEQUATE) Sodium Level 142 mmol/L (136-145) Potassium Level 4.2 mmol/L (3.5-5.1) Chloride Level 105 mmol/L (98-107) Carbon Dioxide Level 30 mmol/L (21-32) Anion Gap 7 (6-14) Blood Urea Nitrogen 12 mg/dL (8-26) Creatinine 1.1 mg/dL (0.7-1.3) Estimated GFR (Cockcroft-Gault) 66.0 Glucose Level 155 mg/dL (70-99) Calcium Level 9.6 mg/dL (8.5-10.1) Troponin I Quantitative 0.061 ng/mL (0.000-0.055) 0.289 ng/mL (0.000-0.055) 0.045 ng/mL (0.000-0.055) Laboratory Tests Test 11/28/18 03:30 Troponin I Quantitative 0.045 ng/mL (0.000-0.055) Medications Current Medications Sodium Chloride 1,000 ml @ 1,000 mls/hr Q1H IV Last administered on 11/27/18at 12:50; Start 11/27/18 at 12:30; Stop 11/27/18 at 13:29; Status DC Famotidine (Pepcid Vial) 20 mg 1X ONCE IVP Last administered on 11/27/18at 12:54; Start 11/27/18 at 12:45; Stop 11/27/18 at 12:46; Status DC Aspirin (Children'S Aspirin) 324 mg 1X ONCE PO Last administered on 11/27/18at 16:17; Start 11/27/18 at 16:00; Stop 11/27/18 at 16:01; Status DC Methylprednisolone Sodium Succinate (SOLU-Medrol 125MG VIAL) 125 mg Q8HRS IV Last administered on 11/28/18at 16:26; Start 11/27/18 at 22:00; Stop 11/28/18 at 14:01; Status DC Methylprednisolone Sodium Succinate (SOLU-Medrol 125MG VIAL) 80 mg Q8HRS IV ; Start 11/28/18 at 22:00; Stop 11/28/18 at 16:31; Status DC Diphenhydramine HCl (Benadryl) 25 mg PRN Q6HRS PRN IVP ITCHING; Start 11/27/18 at 17:45; Stop 11/28/18 at 12:00; Status DC Carbidopa/Levodopa (Sinemet 25/100) 1 tab QID PO Last administered on 11/28/18at 16:19; Start 11/27/18 at 21:00 Clonazepam (KlonoPIN) 1.5 mg QHS PO Last administered on 11/27/18at 23:11; S tart 11/27/18 at 21:00 Pramipexole Dihydrochloride (miraPEX) 0.5 mg [id number] PO Last administered on 11/28/18 16:19; Start 11/27/18 at 21:00 Heparin Sodium (Porcine) (Heparin Sodium) 5,000 unit Q8HRS SQ Last administered on 11/28/18at 16:26; Start 11/27/18 at 22:00 Diphenhydramine HCl (Benadryl) 25 mg 1X ONCE PO Last administered on 11/28/18at 12:45; Start 11/28/18 at 09:30; Stop 11/28/18 at 09:31; Status DC Famotidine (Pepcid) 20 mg 1X ONCE PO Last administered on 11/28/18at 12:44; Start 11/28/18 at 09:30; Stop 11/28/18 at 09:31; Status DC Methylprednisolone Sodium Succinate (SOLU-Medrol 125MG VIAL) 40 mg Q12HR IV ; Start 11/28/18 at 22:00; Stop 11/29/18 at 21:01 Active Scripts Active Reported Clonazepam 1 Mg Tablet 1.5 Tab PO QHS Pramipexole Dihydrochloride (Pramipexole Di-Hcl) 0.5 Mg Tablet 0.5 Mg PO TID Carbidopa-Levodopa 25-100 Tab (Carbidopa/Levodopa) 1 Each Tablet 25-100 Mg PO QID Vitals/I & O Vital Sign - Last 24 Hours 11/27/18 11/27/18 11/27/18 11/28/18 18:19 19:20 23:34 03:09 Temp 97.9 97.7 99.6 97.9 97.7 99.6 Pulse 69 77 56 62 Resp 18 18 18 18 B/P (MAP) 98/51 (67) 114/57 (76) 94/40 (58) 104/44 (64) Pulse Ox 96 99 97 98 O2 Delivery Room Air Room Air Room Air Room Air 11/28/18 11/28/18 11/28/18 07:00 11:00 15:25 Temp 98.4 97.6 98.5 98.4 97.6 98.5 Pulse 62 62 73 Resp 18 18 16 B/P (MAP) 107/45 (65) 102/47 (65) 113/58 (76) Pulse Ox 96 98 93 O2 Delivery Room Air Room Air Room Air Intake and Output 11/27/18 11/27/18 11/28/18 15:00 23:00 07:00 Intake Total 1000 ml 250 ml 200 ml Output Total 570 ml Balance 1000 ml 250 ml -370 ml HERNAN RAYO MD Nov 28, 2018 17:29
[2018-11-28] MEDS ORDERED: ONDANSETRON PF 4 MG/2 ML VIAL. IVP PRN (18:45)
[2018-11-28] MEDS ORDERED: ACETAMINOPHEN 500 MG TABLET PO PRN (18:45)
[2018-11-28] MEDS ORDERED: ACETAMINOPHEN/CODEINE 300/30MG TABLET. PO PRN (18:45)
[2018-11-28 19:51] VITALS: BP 141/67
[2018-11-28] MEDS: clonazePAM 0.5 MG TABLET PO SCH (21:36)
[2018-11-28] MEDS ORDERED: methylPREDNISolone SOD SUCC PF 125 MG/2 ML VIAL. IV SCH (22:00)
[2018-11-28 23:10] VITALS: BP 126/61
[2018-11-29 03:52] VITALS: BP 112/71
[2018-11-29] MEDS: methylPREDNISolone SOD SUCC PF 125 MG/2 ML VIAL. IV SCH ×2 (04:04→09:15)
[2018-11-29 04:33] LABS: BASO % 0 % (0-3); EOS % 0 % (0-3); HEMATOCRIT 38.7 % (39.0-53.0); HEMOGLOBIN 13.3 g/dL (13.0-17.5); LYMPH # 0.5 x10^3/uL (1.0-4.8); LYMPH % 5 % (24-48); MEAN CORPUSCULAR HEMOGLOBIN 34 pg (25-35); MEAN CORPUSCULAR HGB CONC 35 g/dL (31-37); MEAN CORPUSCULAR VOLUME 98 fL (79-100); MONO # 0.2 x10^3/uL (0.0-1.1); MONO % 2 % (0-9); NEUT # 9.5 x10^3/uL (1.8-7.7); NEUT % 94 % (31-73); PLATELET COUNT 190 x10^3/uL (140-400); RED BLOOD COUNT 3.94 x10^6/uL (4.30-5.70); WHITE BLOOD COUNT 10.1 x10^3/uL (4.0-11.0)
[2018-11-29 05:07] LABS: ALBUMIN 3.3 g/dL (3.4-5.0); CALCIUM 9.2 mg/dL (8.5-10.1); CREATININE 0.9 mg/dL (0.7-1.3); GFR 83.2; POTASSIUM 4.2 mmol/L (3.5-5.1); TOTAL BILIRUBIN 0.4 mg/dL (0.2-1.0); TOTAL PROTEIN 6.6 g/dL (6.4-8.2)
[2018-11-29] MEDS: HEPARIN for SUB-Q USE 5,000 UNIT/ML VIAL. SQ SCH (05:58)
[2018-11-29 07:00] VITALS: BP 147/80
--- NOTE | 2018-11-29 08:43 | PDOC ---
PROGRESS NOTES History of Present Illness History of Present Illness VTE Prophylaxis Ordered VTE Prophylaxis Devices: No VTE Pharmacological Prophylaxi: Yes DISCHARGE DX IMPRESSION 1. MULTIPLE BEE STINGS WITH ANAPHYLAXIS// angioedema 2. Parkinson's disease with bradykinesia 3. troponin i elevation LIKELY inc myocardial demand from bee stings PLAN ADMIT IV STEROID TAPER d/c//po prednisone IV BENADRYl 25 MG Q 6 HRS dvt prophylaxis cardiology consult ok with d/c today echo serial troponin i po pepsid bid see PCP SATURDAY 33 min pt exam, chart review D/C PLANNING , > 50% of time spent with exam, chart review, pt care coordination Vitals Vitals Vital Signs Date Time Temp Pulse Resp B/P (MAP) Pulse Ox O2 Delivery O2 Flow Rate FiO2 11/29/18 07:00 98.1 76 16 147/80 (102) 98 Room Air 98.1 Physical Exam General: Alert, Oriented X3, Cooperative, No acute distress Heart: Regular rate, Normal S1, No murmurs Lungs: Clear Abdomen: Normal bowel sounds, Soft, No tenderness Extremities: No clubbing, No cyanosis, No edema Skin: No significant lesion Labs LABS Laboratory Tests Test 11/29/18 03:53 White Blood Count 10.1 x10^3/uL (4.0-11.0) Red Blood Count 3.94 x10^6/uL (4.30-5.70) Hemoglobin 13.3 g/dL (13.0-17.5) Hematocrit 38.7 % (39.0-53.0) Mean Corpuscular Volume 98 fL (79-100) Mean Corpuscular Hemoglobin 34 pg (25-35) Mean Corpuscular Hemoglobin Concent 35 g/dL (31-37) Red Cell Distribution Width 13.0 % (11.5-14.5) Platelet Count 190 x10^3/uL (140-400) Neutrophils (%) (Auto) 94 % (31-73) Lymphocytes (%) (Auto) 5 % (24-48) Monocytes (%) (Auto) 2 % (0-9) Eosinophils (%) (Auto) 0 % (0-3) Basophils (%) (Auto) 0 % (0-3) Neutrophils # (Auto) 9.5 x10^3/uL (1.8-7.7) Lymphocytes # (Auto) 0.5 x10^3/uL (1.0-4.8) Monocytes # (Auto) 0.2 x10^3/uL (0.0-1.1) Eosinophils # (Auto) 0.0 x10^3/uL (0.0-0.7) Basophils # (Auto) 0.0 x10^3/uL (0.0-0.2) Sodium Level 140 mmol/L (136-145) Potassium Level 4.2 mmol/L (3.5-5.1) Chloride Level 105 mmol/L (98-107) Carbon Dioxide Level 29 mmol/L (21-32) Anion Gap 6 (6-14) Blood Urea Nitrogen 17 mg/dL (8-26) Creatinine 0.9 mg/dL (0.7-1.3) Estimated GFR (Cockcroft-Gault) 83.2 BUN/Creatinine Ratio 19 (6-20) Glucose Level 148 mg/dL (70-99) Calcium Level 9.2 mg/dL (8.5-10.1) Total Bilirubin 0.4 mg/dL (0.2-1.0) Aspartate Amino Transf (AST/SGOT) 14 U/L (15-37) Alanine Aminotransferase (ALT/SGPT) 9 U/L (16-63) Alkaline Phosphatase 62 U/L (46-116) Total Protein 6.6 g/dL (6.4-8.2) Albumin 3.3 g/dL (3.4-5.0) Albumin/Globulin Ratio 1.0 (1.0-1.7) Assessment and Plan Assessmemt and Plan Problems Medical Problems: (1) Allergic reaction Status: Acute (2) Anaphylactic reaction to bee sting Status: Acute (3) Elevated troponin Status: Acute (4) Parkinson disease Status: Chronic Comment Review of Relevant I have reviewed the following items dori (where applicable) has been applied. Labs Laboratory Tests Test 11/27/18 13:03 11/27/18 15:12 11/28/18 03:30 11/29/18 03:53 White Blood Count 10.3 x10^3/uL (4.0-11.0) 10.1 x10^3/uL (4.0-11.0) Red Blood Count 4.21 x10^6/uL (4.30-5.70) 3.94 x10^6/uL (4.30-5.70) Hemoglobin 14.1 g/dL (13.0-17.5) 13.3 g/dL (13.0-17.5) Hematocrit 41.2 % (39.0-53.0) 38.7 % (39.0-53.0) Mean Corpuscular Volume 98 fL (79-100) 98 fL (79-100) Mean Corpuscular Hemoglobin 34 pg (25-35) 34 pg (25-35) Mean Corpuscular Hemoglobin Concent 34 g/dL (31-37) 35 g/dL (31-37) Red Cell Distribution Width 13.2 % (11.5-14.5) 13.0 % (11.5-14.5) Platelet Count 187 x10^3/uL (140-400) 190 x10^3/uL (140-400) Neutrophils (%) (Auto) 90 % (31-73) 94 % (31-73) Lymphocytes (%) (Auto) 6 % (24-48) 5 % (24-48) Monocytes (%) (Auto) 4 % (0-9) 2 % (0-9) Eosinophils (%) (Auto) 0 % (0-3) 0 % (0-3) Basophils (%) (Auto) 0 % (0-3) 0 % (0-3) Neutrophils # (Auto) 9.2 x10^3/uL (1.8-7.7) 9.5 x10^3/uL (1.8-7.7) Lymphocytes # (Auto) 0.6 x10^3/uL (1.0-4.8) 0.5 x10^3/uL (1.0-4.8) Monocytes # (Auto) 0.4 x10^3/uL (0.0-1.1) 0.2 x10^3/uL (0.0-1.1) Eosinophils # (Auto) 0.0 x10^3/uL (0.0-0.7) 0.0 x10^3/uL (0.0-0.7) Basophils # (Auto) 0.0 x10^3/uL (0.0-0.2) 0.0 x10^3/uL (0.0-0.2) Segmented Neutrophils % 72 % (35-66) Band Neutrophils % 9 % (0-9) Lymphocytes % 10 % (24-48) Monocytes % 8 % (0-10) Eosinophils % 1 % (0-5) Platelet Estimate Adequate (ADEQUATE) Sodium Level 142 mmol/L (136-145) 140 mmol/L (136-145) Potassium Level 4.2 mmol/L (3.5-5.1) 4.2 mmol/L (3.5-5.1) Chloride Level 105 mmol/L (98-107) 105 mmol/L (98-107) Carbon Dioxide Level 30 mmol/L (21-32) 29 mmol/L (21-32) Anion Gap 7 (6-14) 6 (6-14) Blood Urea Nitrogen 12 mg/dL (8-26) 17 mg/dL (8-26) Creatinine 1.1 mg/dL (0.7-1.3) 0.9 mg/dL (0.7-1.3) Estimated GFR (Cockcroft-Gault) 66.0 83.2 Glucose Level 155 mg/dL (70-99) 148 mg/dL (70-99) Calcium Level 9.6 mg/dL (8.5-10.1) 9.2 mg/dL (8.5-10.1) Troponin I Quantitative 0.061 ng/mL (0.000-0.055) 0.289 ng/mL (0.000-0.055) 0.045 ng/mL (0.000-0.055) BUN/Creatinine Ratio 19 (6-20) Total Bilirubin 0.4 mg/dL (0.2-1.0) Aspartate Amino Transf (AST/SGOT) 14 U/L (15-37) Alanine Aminotransferase (ALT/SGPT) 9 U/L (16-63) Alkaline Phosphatase 62 U/L (46-116) Total Protein 6.6 g/dL (6.4-8.2) Albumin 3.3 g/dL (3.4-5.0) Albumin/Globulin Ratio 1.0 (1.0-1.7) Laboratory Tests Test 11/29/18 03:53 White Blood Count 10.1 x10^3/uL (4.0-11.0) Red Blood Count 3.94 x10^6/uL (4.30-5.70) Hemoglobin 13.3 g/dL (13.0-17.5) Hematocrit 38.7 % (39.0-53.0) Mean Corpuscular Volume 98 fL (79-100) Mean Corpuscular Hemoglobin 34 pg (25-35) Mean Corpuscular Hemoglobin Concent 35 g/dL (31-37) Red Cell Distribution Width 13.0 % (11.5-14.5) Platelet Count 190 x10^3/uL (140-400) Neutrophils (%) (Auto) 94 % (31-73) Lymphocytes (%) (Auto) 5 % (24-48) Monocytes (%) (Auto) 2 % (0-9) Eosinophils (%) (Auto) 0 % (0-3) Basophils (%) (Auto) 0 % (0-3) Neutrophils # (Auto) 9.5 x10^3/uL (1.8-7.7) Lymphocytes # (Auto) 0.5 x10^3/uL (1.0-4.8) Monocytes # (Auto) 0.2 x10^3/uL (0.0-1.1) Eosinophils # (Auto) 0.0 x10^3/uL (0.0-0.7) Basophils # (Auto) 0.0 x10^3/uL (0.0-0.2) Sodium Level 140 mmol/L (136-145) Potassium Level 4.2 mmol/L (3.5-5.1) Chloride Level 105 mmol/L (98-107) Carbon Dioxide Level 29 mmol/L (21-32) Anion Gap 6 (6-14) Blood Urea Nitrogen 17 mg/dL (8-26) Creatinine 0.9 mg/dL (0.7-1.3) Estimated GFR (Cockcroft-Gault) 83.2 BUN/Creatinine Ratio 19 (6-20) Glucose Level 148 mg/dL (70-99) Calcium Level 9.2 mg/dL (8.5-10.1) Total Bilirubin 0.4 mg/dL (0.2-1.0) Aspartate Amino Transf (AST/SGOT) 14 U/L (15-37) Alanine Aminotransferase (ALT/SGPT) 9 U/L (16-63) Alkaline Phosphatase 62 U/L (46-116) Total Protein 6.6 g/dL (6.4-8.2) Albumin 3.3 g/dL (3.4-5.0) Albumin/Globulin Ratio 1.0 (1.0-1.7) Medications Current Medications Sodium Chloride 1,000 ml @ 1,000 mls/hr Q1H IV Last administered on 11/27/18at 12:50; Start 11/27/18 at 12:30; Stop 11/27/18 at 13:29; Status DC Famotidine (Pepcid Vial) 20 mg 1X ONCE IVP Last administered on 11/27/18at 12:54; Start 11/27/18 at 12:45; Stop 11/27/18 at 12:46; Status DC Aspirin (Children'S Aspirin) 324 mg 1X ONCE PO Last administered on 11/27/18at 16:17; Start 11/27/18 at 16:00; Stop 11/27/18 at 16:01; Status DC Methylprednisolone Sodium Succinate (SOLU-Medrol 125MG VIAL) 125 mg Q8HRS IV Last administered on 11/28/18at 16:26; Start 11/27/18 at 22:00; Stop 11/28/18 at 14:01; Status DC Methylprednisolone Sodium Succinate (SOLU-Medrol 125MG VIAL) 80 mg Q8HRS IV ; Start 11/28/18 at 22:00; Stop 11/28/18 at 16:31; Status DC Diphenhydramine HCl (Benadryl) 25 mg PRN Q6HRS PRN IVP ITCHING; Start 11/27/18 at 17:45; Stop 11/28/18 at 12:00; Status DC Carbidopa/Levodopa (Sinemet 25/100) 1 tab QID PO Last administered on 11/28/18at 21:36; Start 11/27/18 at 21:00 Clonazepam (KlonoPIN) 1.5 mg QHS PO Last administered on 11/28/18at 21:36; Start 11/27/18 at 21:00 Pramipexole Dihydrochloride (miraPEX) 0.5 mg [id number] PO Last administered on 11/28/18at 16:19; Start 11/27/18 at 21:00 Heparin Sodium (Porcine) (Heparin Sodium) 5,000 unit Q8HRS SQ Last administered on 11/28/18at 21:41; Start 11/27/18 at 22:00 Diphenhydramine HCl (Benadryl) 25 mg 1X ONCE PO Last administered on 11/28/18at 12:45; Start 11/28/18 at 09:30; Stop 11/28/18 at 09:31; Status DC Famotidine (Pepcid) 20 mg 1X ONCE PO Last administered on 11/28/18at 12:44; Start 11/28/18 at 09:30; Stop 11/28/18 at 09:31; Status DC Methylprednisolone Sodium Succinate (SOLU-Medrol 125MG VIAL) 40 mg Q12HR IV Last administered on 11/29/18at 04:04; Start 11/28/18 at 22:00; Stop 11/29/18 at 21:01 Acetaminophen/ Codeine Phosphate (Tylenol #3) 1 tab PRN Q6HRS PRN PO MODERATE PAIN; Start 11/28/18 at 18:45 Acetaminophen (Tylenol) 500 mg PRN Q6HRS PRN PO MILD PAIN / TEMP; Start 11/28/18 at 18:45 Ondansetron HCl (Zofran) 4 mg PRN Q6HRS PRN IVP NAUSEA/VOMITING; Start 11/28/18 at 18:45 Active Scripts Active Reported Clonazepam 1 Mg Tablet 1.5 Tab PO QHS Pramipexole Dihydrochloride (Pramipexole Di-Hcl) 0.5 Mg Tablet 0.5 Mg PO TID Carbidopa-Levodopa 25-100 Tab (Carbidopa/Levodopa) 1 Each Tablet 25-100 Mg PO QID Vitals/I & O Vital Sign - Last 24 Hours 11/28/18 11/28/18 11/28/18 11/28/18 11:00 15:25 19:51 23:10 Temp 97.6 98.5 98.2 98.0 97.6 98.5 98.2 98.0 Pulse 62 73 79 77 Resp 18 16 20 18 B/P (MAP) 102/47 (65) 113/58 (76) 141/67 (91) 126/61 (82) Pulse Ox 98 93 100 96 O2 Delivery Room Air Room Air Room Air Room Air 11/29/18 11/29/18 03:52 07:00 Temp 98.1 98.1 Pulse 75 76 Resp 16 16 B/P (MAP) 112/71 (85) 147/80 (102) Pulse Ox 92 98 O2 Delivery Room Air Room Air Intake and Output 11/28/18 11/28/18 11/29/18 15:00 23:00 07:00 Intake Total 200 ml 200 ml Output Total 500 ml 950 ml 500 ml Balance -300 ml -750 ml -500 ml VENANCIO BENSON MD Nov 29, 2018 08:43
[2018-11-29] MEDS: CARBIDOPA/LEVODOPA 25/100MG TABLET PO SCH (09:16)
[2018-11-29] MEDS: PRAMIPEXOLE 0.25 MG TABLET. PO SCH (09:16)
--- NOTE | 2018-11-29 11:42 | PDOC3 ---
Discharge Summary Date of Admission: Nov 27, 2018 Date of Discharge: Nov 29, 2018 Follow-Up: 3-5 days Admitting Diagnosis comment: DISCHARGE DX IMPRESSION 1. MULTIPLE BEE STINGS WITH ANAPHYLAXIS// angioedema 2. Parkinson's disease with bradykinesia 3. troponin i elevation LIKELY inc myocardial demand from bee stings PLAN ADMIT IV STEROID TAPER d/c//po prednisone IV BENADRYl 25 MG Q 6 HRS dvt prophylaxis cardiology consult ok with d/c today echo serial troponin i po pepsid bid see PCP SATURDAY 33 min pt exam, chart review D/C PLANNING , > 50% of time spent with exam, chart review, pt care coordination Vitals Vitals Vital Signs Date Time Temp Pulse Resp B/P (MAP) Pulse Ox O2 Delivery O2 Flow Rate FiO2 11/29/18 07:00 98.1 76 16 147/80 (102) 98 Room Air 98.1 Physical Exam General: Alert, Oriented X3, Cooperative, No acute distress Heart: Regular rate, Normal S1, No murmurs Lungs: Clear Abdomen: Normal bowel sounds, Soft, No tenderness Extremities: No clubbing, No cyanosis, No edema Skin: No significant lesion Labs FINAL DIAGNOSIS Problems Medical Problems: (1) Allergic reaction Status: Acute (2) Anaphylactic reaction to bee sting Status: Acute (3) Elevated troponin Status: Acute (4) Parkinson disease Status: Chronic Brief Hospital Course Mr. Farley is a 73 old [sex] who presented with [angioedema from bee stings ] CONDITION AT DISCHARGE: Improved Discharge Medications Current Medications Sodium Chloride 1,000 ml @ 1,000 mls/hr Q1H IV Last administered on 11/27/18at 12:50; Start 11/27/18 at 12:30; Stop 11/27/18 at 13:29; Status DC Famotidine (Pepcid Vial) 20 mg 1X ONCE IVP Last administered on 11/27/18at 12:54; Start 11/27/18 at 12:45; Stop 11/27/18 at 12:46; Status DC Aspirin (Children'S Aspirin) 324 mg 1X ONCE PO Last administered on 11/27/18at 16:17; Start 11/27/18 at 16:00; Stop 11/27/18 at 16:01; Status DC Methylprednisolone Sodium Succinate (SOLU-Medrol 125MG VIAL) 125 mg Q8HRS IV Last administered on 11/28/18at 16:26; Start 11/27/18 at 22:00; Stop 11/28/18 at 14:01; Status DC Methylprednisolone Sodium Succinate (SOLU-Medrol 125MG VIAL) 80 mg Q8HRS IV ; Start 11/28/18 at 22:00; Stop 11/28/18 at 16:31; Status DC Diphenhydramine HCl (Benadryl) 25 mg PRN Q6HRS PRN IVP ITCHING; Start 11/27/18 at 17:45; Stop 11/28/18 at 12:00; Status DC Carbidopa/Levodopa (Sinemet 25/100) 1 tab QID PO Last administered on 11/29/18 09:16; Start 11/27/18 at 21:00 Clonazepam (KlonoPIN) 1.5 mg QHS PO Last administered on 11/28/18at 21:36; Start 11/27/18 at 21:00 Pramipexole Dihydrochloride (miraPEX) 0.5 mg [id number] PO Last administered on 11/29/18at 09:16; Start 11/27/18 at 21:00 Heparin Sodium (Porcine) (Heparin Sodium) 5,000 unit Q8HRS SQ Last administered on 11/28/18at 21:41; Start 11/27/18 at 22:00 Diphenhydramine HCl (Benadryl) 25 mg 1X ONCE PO Last administered on 11/28/18at 12:45; Start 11/28/18 at 09:30; Stop 11/28/18 at 09:31; Status DC Famotidine (Pepcid) 20 mg 1X ONCE PO Last administered on 11/28/18at 12:44; Start 11/28/18 at 09:30; Stop 11/28/18 at 09:31; Status DC Methylprednisolone Sodium Succinate (SOLU-Medrol 125MG VIAL) 40 mg Q12HR IV Last administered on 11/29/18at 09:15; Start 11/28/18 at 22:00; Stop 11/29/18 at 21:01 Acetaminophen/ Codeine Phosphate (Tylenol #3) 1 tab PRN Q6HRS PRN PO MODERATE PAIN; Start 11/28/18 at 18:45 Acetaminophen (Tylenol) 500 mg PRN Q6HRS PRN PO MILD PAIN / TEMP; Start 11/28/18 at 18:45 Ondansetron HCl (Zofran) 4 mg PRN Q6HRS PRN IVP NAUSEA/VOMITING; Start 11/28/18 at 18:45 Active Scripts Active Reported Clonazepam 1 Mg Tablet 1.5 Tab PO QHS Pramipexole Dihydrochloride (Pramipexole Di-Hcl) 0.5 Mg Tablet 0.5 Mg PO TID Carbidopa-Levodopa 25-100 Tab (Carbidopa/Levodopa) 1 Each Tablet 25-100 Mg PO QID Vital Signs Vital Signs Date Time Temp Pulse Resp B/P (MAP) Pulse Ox O2 Delivery O2 Flow Rate FiO2 11/29/18 08:00 Room Air 11/29/18 07:00 98.1 76 16 147/80 (102) 98 98.1 Labs Laboratory Tests Test 11/27/18 13:03 11/27/18 15:12 11/28/18 03:30 11/29/18 03:53 White Blood Count 10.3 x10^3/uL (4.0-11.0) 10.1 x10^3/uL (4.0-11.0) Red Blood Count 4.21 x10^6/uL (4.30-5.70) 3.94 x10^6/uL (4.30-5.70) Hemoglobin 14.1 g/dL (13.0-17.5) 13.3 g/dL (13.0-17.5) Hematocrit 41.2 % (39.0-53.0) 38.7 % (39.0-53.0) Mean Corpuscular Volume 98 fL (79-100) 98 fL (79-100) Mean Corpuscular Hemoglobin 34 pg (25-35) 34 pg (25-35) Mean Corpuscular Hemoglobin Concent 34 g/dL (31-37) 35 g/dL (31-37) Red Cell Distribution Width 13.2 % (11.5-14.5) 13.0 % (11.5-14.5) Platelet Count 187 x10^3/uL (140-400) 190 x10^3/uL (140-400) Neutrophils (%) (Auto) 90 % (31-73) 94 % (31-73) Lymphocytes (%) (Auto) 6 % (24-48) 5 % (24-48) Monocytes (%) (Auto) 4 % (0-9) 2 % (0-9) Eosinophils (%) (Auto) 0 % (0-3) 0 % (0-3) Basophils (%) (Auto) 0 % (0-3) 0 % (0-3) Neutrophils # (Auto) 9.2 x10^3/uL (1.8-7.7) 9.5 x10^3/uL (1.8-7.7) Lymphocytes # (Auto) 0.6 x10^3/uL (1.0-4.8) 0.5 x10^3/uL (1.0-4.8) Monocytes # (Auto) 0.4 x10^3/uL (0.0-1.1) 0.2 x10^3/uL (0.0-1.1) Eosinophils # (Auto) 0.0 x10^3/uL (0.0-0.7) 0.0 x10^3/uL (0.0-0.7) Basophils # (Auto) 0.0 x10^3/uL (0.0-0.2) 0.0 x10^3/uL (0.0-0.2) Segmented Neutrophils % 72 % (35-66) Band Neutrophils % 9 % (0-9) Lymphocytes % 10 % (24-48) Monocytes % 8 % (0-10) Eosinophils % 1 % (0-5) Platelet Estimate Adequate (ADEQUATE) Sodium Level 142 mmol/L (136-145) 140 mmol/L (136-145) Potassium Level 4.2 mmol/L (3.5-5.1) 4.2 mmol/L (3.5-5.1) Chloride Level 105 mmol/L (98-107) 105 mmol/L (98-107) Carbon Dioxide Level 30 mmol/L (21-32) 29 mmol/L (21-32) Anion Gap 7 (6-14) 6 (6-14) Blood Urea Nitrogen 12 mg/dL (8-26) 17 mg/dL (8-26) Creatinine 1.1 mg/dL (0.7-1.3) 0.9 mg/dL (0.7-1.3) Estimated GFR (Cockcroft-Gault) 66.0 83.2 Glucose Level 155 mg/dL (70-99) 148 mg/dL (70-99) Calcium Level 9.6 mg/dL (8.5-10.1) 9.2 mg/dL (8.5-10.1) Troponin I Quantitative 0.061 ng/mL (0.000-0.055) 0.289 ng/mL (0.000-0.055) 0.045 ng/mL (0.000-0.055) BUN/Creatinine Ratio 19 (6-20) Total Bilirubin 0.4 mg/dL (0.2-1.0) Aspartate Amino Transf (AST/SGOT) 14 U/L (15-37) Alanine Aminotransferase (ALT/SGPT) 9 U/L (16-63) Alkaline Phosphatase 62 U/L (46-116) Total Protein 6.6 g/dL (6.4-8.2) Albumin 3.3 g/dL (3.4-5.0) Albumin/Globulin Ratio 1.0 (1.0-1.7) Laboratory Tests Test 11/29/18 03:53 White Blood Count 10.1 x10^3/uL (4.0-11.0) Red Blood Count 3.94 x10^6/uL (4.30-5.70) Hemoglobin 13.3 g/dL (13.0-17.5) Hematocrit 38.7 % (39.0-53.0) Mean Corpuscular Volume 98 fL (79-100) Mean Corpuscular Hemoglobin 34 pg (25-35) Mean Corpuscular Hemoglobin Concent 35 g/dL (31-37) Red Cell Distribution Width 13.0 % (11.5-14.5) Platelet Count 190 x10^3/uL (140-400) Neutrophils (%) (Auto) 94 % (31-73) Lymphocytes (%) (Auto) 5 % (24-48) Monocytes (%) (Auto) 2 % (0-9) Eosinophils (%) (Auto) 0 % (0-3) Basophils (%) (Auto) 0 % (0-3) Neutrophils # (Auto) 9.5 x10^3/uL (1.8-7.7) Lymphocytes # (Auto) 0.5 x10^3/uL (1.0-4.8) Monocytes # (Auto) 0.2 x10^3/uL (0.0-1.1) Eosinophils # (Auto) 0.0 x10^3/uL (0.0-0.7) Basophils # (Auto) 0.0 x10^3/uL (0.0-0.2) Sodium Level 140 mmol/L (136-145) Potassium Level 4.2 mmol/L (3.5-5.1) Chloride Level 105 mmol/L (98-107) Carbon Dioxide Level 29 mmol/L (21-32) Anion Gap 6 (6-14) Blood Urea Nitrogen 17 mg/dL (8-26) Creatinine 0.9 mg/dL (0.7-1.3) Estimated GFR (Cockcroft-Gault) 83.2 BUN/Creatinine Ratio 19 (6-20) Glucose Level 148 mg/dL (70-99) Calcium Level 9.2 mg/dL (8.5-10.1) Total Bilirubin 0.4 mg/dL (0.2-1.0) Aspartate Amino Transf (AST/SGOT) 14 U/L (15-37) Alanine Aminotransferase (ALT/SGPT) 9 U/L (16-63) Alkaline Phosphatase 62 U/L (46-116) Total Protein 6.6 g/dL (6.4-8.2) Albumin 3.3 g/dL (3.4-5.0) Albumin/Globulin Ratio 1.0 (1.0-1.7) Allergies Allergies Coded Allergies Type Severity Reaction Last Updated Verified No Known Drug Allergies 03/14/18 No Disposition/Orders: D/C to Home Patient Instructions d/c planning 33 min VENANCIO BENSON MD Nov 29, 2018 11:42
[2018-11-29] MEDS ORDERED: PRED20TA PO (11:45)
--- NOTE | 2018-11-29 11:46 | DISCH ---
DISCHARGE INSTRUCTIONS Condition on Discharge Condition on Discharge: Stable Activity After Discharge Activity Instructions for Disc: Activity as tolerated Lifting Instructions after Dis: No heavy lifting Driving Instructions after Dis: Do not drive today Diet after Discharge Diet after Discharge: Cardiac Wound Incision Care Wound/Incision Care: No wound care needed Checks after Discharge Checks after discharge: Check blood press - daily VENANCIO BENSON MD Nov 29, 2018 11:46
--- NOTE | 2018-11-29 12:21 | NUR ---
pt was discahrged home with selfcare, gave him scripts for Prednisolone, Pepsid, and Epi-Pen to be filled. he was walked out to the main entrance and taken home by his spouse. Elio Walters RN
== END 2018-11-29 12:25 | disposition home or self-care (01) | DRG 918 ==
LOC: ER 12:14 → ED HOLD 16:00 → 6 SOUTH 18:46
PROVIDERS: ADMIT Family Medicine; ATTEND Family Medicine
DX: T63.441A Toxic effect of venom of bees, accidental (unintentional), initial encounter (principal); T78.2XXA Anaphylactic shock, unspecified, initial encounter; T78.3XXA Angioneurotic edema, initial encounter; E78.00 Pure hypercholesterolemia, unspecified; G20 Parkinson's disease; I10 Essential (primary) hypertension; I25.10 Atherosclerotic heart disease of native coronary artery without angina pectoris; E78.5 Hyperlipidemia, unspecified; K21.9 Gastro-esophageal reflux disease without esophagitis; M19.90 Unspecified osteoarthritis, unspecified site; Z86.73 Personal history of transient ischemic attack (TIA), and cerebral infarction without residual deficits; Y92.89 Other specified places as the place of occurrence of the external cause
CPT/HCPCS: 36415; 80048; 80053; 84484; 85007; 85025; 93005; 93306; 96361; 96374; 96375; J1644; J2930; J3490; J7030; Q0163; 99285-25; G0378

== ENCOUNTER 2020-07-09 10:10 | Emergency (ER) | payer MEDICARE, BC ==
[~2020-07-09] VITALS: Ht 175.3 cm; Wt 79.9 kg
[~2020-07-09 10:10] MED LIST changes: +PRED20TA PO
[2020-07-09 10:19] VITALS: BP 113/52
[2020-07-09 10:42] LABS: BASO % 0 % (0-3); EOS % 0 % (0-3); HEMATOCRIT 40.9 % (39.0-53.0); HEMOGLOBIN 13.9 g/dL (13.0-17.5); LYMPH # 0.7 x10^3/uL (1.0-4.8); LYMPH % 8 % (24-48); MEAN CORPUSCULAR HEMOGLOBIN 34 pg (25-35); MEAN CORPUSCULAR HGB CONC 34 g/dL (31-37); MEAN CORPUSCULAR VOLUME 99 fL (79-100); MONO # 0.4 x10^3/uL (0.0-1.1); MONO % 4 % (0-9); NEUT # 8.6 x10^3/uL (1.8-7.7); NEUT % 88 % (31-73); PLATELET COUNT 203 x10^3/uL (140-400); RED BLOOD COUNT 4.13 x10^6/uL (4.30-5.70); RED CELL DISTRIBUTION WIDTH 13.1 % (11.5-14.5); WHITE BLOOD COUNT 9.8 x10^3/uL (4.0-11.0)
--- NOTE | 2020-07-09 10:47 | RAD ---
EXAM: Chest, single view. HISTORY: Chest pain. COMPARISON: 03/17/2018 FINDINGS: A frontal view of the chest is obtained. There is partially consolidated right lower lobe i nfiltrate. There is no pleural effusion or pneumothorax. The heart is normal in size. IMPRESSION: Partially consolidated right lower lobe infiltrate. Follow-up to confirm resolution. Electronically signed by: Margi Medley MD (07/09/2020 10:44 AM) [facility]
--- NOTE | 2020-07-09 10:52 | EKG ---
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
[2020-07-09 11:11] LABS: CALCIUM 8.3 mg/dL (8.5-10.1); CREATININE 1.1 mg/dL (0.7-1.3); GFR 65.6; POTASSIUM 4.3 mmol/L (3.5-5.1)
[2020-07-09 11:16] LABS: ALBUMIN 3.8 g/dL (3.4-5.0); ALBUMIN/GLOBULIN RATIO 1.4 (1.0-1.7); MAGNESIUM 1.8 mg/dL (1.8-2.4); TOTAL PROTEIN 6.6 g/dL (6.4-8.2)
[2020-07-09] MEDS ORDERED: CEFD300C PO (11:28)
--- NOTE | 2020-07-09 11:28 | PHYS DOC ---
Past Medical History Past Medical History: High Cholesterol Additional Past Medical Histor: PARKINSONS, night terrors Past Surgical History: Other Additional Past Surgical Histo: hernia repair, cornea transplant Smoking Status: Never Smoker Alcohol Use: None Drug Use: None General Adult EDM: Chief Complaint: CHEST PAIN HPI: HPI: Patient is a 75 year old male who presented to ER for evaluation of right-sided lower chest pain, nonproductive cough for several days. Patient actually had a nonproductive cough for about a week. Patient denies any fever. Patient denies any trouble breathing. Patient denies history of smoking, denies any history of COVID-19 infection. He denies any recent travel or operation. He has no history of coronary disease. Review of Systems: Review of Systems: Constitutional: Denies fever or chills. [] Eyes: Denies change in visual acuity. [] HENT: Denies nasal congestion or sore throat. [] Respiratory: Positive for cough, no trouble breathing. [] Cardiovascular: Positive for right-sided chest pain, no edema. GI: Denies abdominal pain, nausea, vomiting, bloody stools or diarrhea. [] : Denies dysuria. [] Musculoskeletal: Denies back pain or joint pain. [] Integument: Denies rash. [] Neurologic: Denies headache, focal weakness or sensory changes. [] Endocrine: Denies polyuria or polydipsia. [] Lymphatic: Denies swollen glands. [] Psychiatric: Denies depression or anxiety. [] Heart Score: C/O Chest Pain: Yes HEART Score for Chest Pain: HEART Score for Chest Pain Response (Comments) Value History Slighlty/Non-Suspicious 0 ECG Normal 0 Age > 65 2 Risk Factors 1 or 2 Risk Factors 1 Troponin < Normal Limit 0 Total 3 Risk Factors: Risk Factors: DM, Current or recent (<one month) smoker, HTN, HLP, family history of CAD, obesity. Risk Scores: Score 0 - 3: 2.5% MACE over next 6 weeks - Discharge Home Score 4 - 6: 20.3% MACE over next 6 weeks - Admit for Clinical Observation Score 7 - 10: 72.7% MACE over next 6 weeks - Early Invasive Strategies Current Medications: Current Medications Medications (Trade) Dose Ordered Sig/Chasity Start Time Stop Time Status Last Admin Dose Admin Ceftriaxone Sodium (Rocephin) 1 gm 1X ONCE 07/09/20 11:30 07/09/20 11:31 UNV Allergies: Allergies: Allergies Coded Allergies Type Severity Reaction Last Updated Verified No Known Drug Allergies 03/14/18 No Physical Exam: PE: Constitutional: Well developed, well nourished, no acute distress, non-toxic appearance. [] HENT: Normocephalic, atraumatic, bilateral external ears normal, oropharynx moist, no oral exudates, nose normal. [] Eyes: PERRLA, EOMI, conjunctiva normal, no discharge. [] Neck: Normal range of motion, no tenderness, supple, no stridor. [] Cardiovascular:Heart rate regular rhythm, no murmur [] Lungs & Thorax: Crackles are heard at the right lung base, no respiratory distress Abdomen: Bowel sounds normal, soft, no tenderness, no masses, no pulsatile masses. [] Skin: Warm, dry, no erythema, no rash. [] Back: No tenderness, no CVA tenderness. [] Extremities: No tenderness, no cyanosis, no clubbing, ROM intact, no edema. [] Neurologic: Alert and oriented X 3, normal motor function, normal sensory function, no focal deficits noted. [] Psychologic: Affect normal, judgement normal, mood normal. [] Current Patient Data: Labs: Laboratory Tests Test 07/09/20 10:20 White Blood Count 9.8 x10^3/uL (4.0-11.0) Red Blood Count 4.13 x10^6/uL (4.30-5.70) L Hemoglobin 13.9 g/dL (13.0-17.5) Hematocrit 40.9 % (39.0-53.0) Mean Corpuscular Volume 99 fL (79-100) Mean Corpuscular Hemoglobin 34 pg (25-35) Mean Corpuscular Hemoglobin Concent 34 g/dL (31-37) Red Cell Distribution Width 13.1 % (11.5-14.5) Platelet Count 203 x10^3/uL (140-400) Neutrophils (%) (Auto) 88 % (31-73) H Lymphocytes (%) (Auto) 8 % (24-48) L Monocytes (%) (Auto) 4 % (0-9) Eosinophils (%) (Auto) 0 % (0-3) Basophils (%) (Auto) 0 % (0-3) Neutrophils # (Auto) 8.6 x10^3/uL (1.8-7.7) H Lymphocytes # (Auto) 0.7 x10^3/uL (1.0-4.8) L Monocytes # (Auto) 0.4 x10^3/uL (0.0-1.1) Eosinophils # (Auto) 0.0 x10^3/uL (0.0-0.7) Basophils # (Auto) 0.0 x10^3/uL (0.0-0.2) Platelet Estimate Pending Sodium Level 142 mmol/L (136-145) Potassium Level 4.3 mmol/L (3.5-5.1) Chloride Level 105 mmol/L (98-107) Carbon Dioxide Level 31 mmol/L (21-32) Anion Gap 6 (6-14) Blood Urea Nitrogen 23 mg/dL (8-26) Creatinine 1.1 mg/dL (0.7-1.3) Estimated GFR (Cockcroft-Gault) 65.6 BUN/Creatinine Ratio 21 (6-20) H Glucose Level 124 mg/dL (70-99) H Calcium Level 8.3 mg/dL (8.5-10.1) L Magnesium Level 1.8 mg/dL (1.8-2.4) Total Bilirubin 1.0 mg/dL (0.2-1.0) Aspartate Amino Transferase (AST) 17 U/L (15-37) Alanine Aminotransferase (ALT) 8 U/L (16-63) L Alkaline Phosphatase 56 U/L (46-116) Troponin I Quantitative < 0.017 ng/mL (0.000-0.055) DS-Dtm-C-Type Natriuretic Peptide 191 pg/mL (0-124) H Total Protein 6.6 g/dL (6.4-8.2) Albumin 3.8 g/dL (3.4-5.0) Albumin/Globulin Ratio 1.4 (1.0-1.7) Lipase 59 U/L (73-393) L Laboratory Tests 07/09/20 10:20 Laboratory Tests 07/09/20 10:20 Vital Signs: Vital Signs Date Time Temp Pulse Resp B/P (MAP) Pulse Ox O2 Delivery O2 Flow Rate FiO2 5/8/21 10:19 97.9 72 22 113/52 (72) 94 Room Air 97.9 EKG: EKG: EKG was done at 1019, heart rate of 73 beats per minutes, sinus rhythm, no ST segment elevation. Radiology/Procedures: Radiology/Procedures: [][facility] [address] [place] [address] IMAGING REPORT Signed PATIENT: SOFY MCCRARY ACCOUNT: [id number] : 1945 LOCATION: ER AGE: 75 SEX: M EXAM STATUS: REG ER ORD. PHYSICIAN: GOLDIE BARRIENTOS DO REASON: chest pain, right side PROCEDURE: PORTABLE CHEST 1V EXAM: Chest, single view. HISTORY: Chest pain. COMPARISON: 03/17/2018 FINDINGS: A frontal view of the chest is obtained. There is partially consolidated right lower lobe infiltrate. There is no pleural effusion or pneumothorax. The heart is normal in size. IMPRESSION: Partially consolidated right lower lobe infiltrate. Follow-up to confirm resolution. Electronically signed by: Margi Castillo MD (07/09/2020 10:44 AM) [facility] DICTATED and SIGNED BY: MARGI CASTILLO MD DATE: 07/09/20 [id number] 0 Course & Med Decision Making: Course & Med Decision Making Pertinent Labs and Imaging studies reviewed. (See chart for details) Patient is a 75-year-old male who presented to ER for evaluation of right-sided chest pain with nonproductive cough. X-ray is chest show right side right lower lobe consolidation consistent with pneumonia. Patient will be discharged home with antibiotic. Patient will need to follow-up with her family physician for reevaluation next week. Patient is amenable to plan of care Dragon Disclaimer: Dragon Disclaimer: This electronic medical record was generated, in whole or in part, using a voice recognition dictation system. Departure Departure Impression: Primary Impression: CAP (community acquired pneumonia) Disposition: HOME / SELF CARE / HOMELESS Condition: STABLE Referrals: ANTOINE HALL MD (PCP) Please follow up with your doctor on Saturday for reevaluation. Patient Instructions: Pneumonia, Adult Additional Instructions: Thank you for visiting our Emergency Department. We appreciate you trusting us with your care. If any additional problems come up don't hesitate to return to visit us. Please follow up with your primary care provider so they can plan additional care if needed and know about the problem that you had. If symptoms worsen come back to the Emergency Department. Any concerning symptoms that start such as chest pain, shortness of air, weakness or numbness on one side of the body, running high fevers or any other concerning symptoms return to the ER. Scripts Cefdinir (CEFDINIR) 300 Mg Capsule 1 CAP PO BID for 10 Days, #20 CAP Prov: GOLDIE BARRIENTOS DO 07/09/20 GOLDIE BARRIENTOS DO July 09, 2020 11:28
[2020-07-09 11:53] LABS: % BANDS 4 % (0-9); % EOS 1 % (0-5); % LYMPHS 7 % (24-48); % MONOS 3 % (0-10); % SEGS 85 % (35-66); PLT ESTIMATE ADEQUATE (ADEQUATE)
[2020-07-09] MEDS ORDERED: cefTRIAXone IV Push 1 GM VIAL. IVP ONE (12:00)
== END 2020-07-09 11:46 | disposition home or self-care (01) ==
LOC: ER 10:10
DX: J18.9 Pneumonia, unspecified organism (principal); E78.00 Pure hypercholesterolemia, unspecified
CPT/HCPCS: 36415; 71045; 80053; 83690; 83735; 83880; 84484; 85007; 85025; 93005; 96374; 99285; J0696

== ENCOUNTER → 2020-09-20 | Outpatient (CLI) | payer MEDICARE, BC ==
[~2020-09-20] MED LIST changes: +BARIUM SULFATE 40% (APPLE) 148 GM PWD. PO ONE; +CEFD300C PO
--- NOTE | 2020-09-20 17:25 | RAD ---
EXAMINATION: DG VIDEO SWALLOW STUDY 09/20/2020 1:31 PM HISTORY: Dysphagia COMPARISON: None. TECHNIQUE: The patient was observed swallowing various consistencies of barium under intermittent flu oroscopy. FINDINGS: The patient had deep penetration with thin, nectar thick, and. Consistencies. There is silent aspirat ion of thin liquids. There was a weak swallow with large amount of residual residuals throughout the exam with inconsistent deep penetration of residuals. Total fluoroscopic time:5.3 minutes. IMPRESSION: Aspiration with thin liquids and deep penetration with multiple other consistencies. Ther e was pharyngeal pooling of residuals throughout the exam. Please see the speech pathologist's report for details. Electronically signed by: Marcelina Delgado MD (09/20/2020 5:23 PM) [id number]
== END | disposition home or self-care (01) ==
LOC: RAD 12:43
PROVIDERS: ATTEND Internal Medicine Pulmonary Disease
DX: R47.02 Dysphasia (principal); R13.10 Dysphagia, unspecified; Z79.899 Other long term (current) drug therapy; Z98.890 Other specified postprocedural states
CPT/HCPCS: 74230; 92526-GN; 92611-GN

== ENCOUNTER 2021-06-05 18:06 | Emergency (ER) | payer MEDICARE, BC ==
[~2021-06-05] VITALS: Ht 175.3 cm; Wt 82.2 kg
[~2021-06-05 18:06] MED LIST changes: -BARIUM SULFATE 40% (APPLE) 148 GM PWD. PO ONE
[2021-06-05] MEDS ORDERED: ACETAMINOPHEN 500 MG TABLET PO ONE (18:45)
[2021-06-05 18:52] LABS: BASO % 1 % (0-3); EOS # 0.2 x10^3/uL (0.0-0.7); EOS % 2 % (0-3); HEMATOCRIT 36.9 % (39.0-53.0); HEMOGLOBIN 12.6 g/dL (13.0-17.5); LYMPH # 1.1 x10^3/uL (1.0-4.8); LYMPH % 16 % (24-48); MEAN CORPUSCULAR HEMOGLOBIN 34 pg (25-35); MEAN CORPUSCULAR HGB CONC 34 g/dL (31-37); MEAN CORPUSCULAR VOLUME 100 fL (79-100); MONO # 0.4 x10^3/uL (0.0-1.1); MONO % 6 % (0-9); NEUT # 5.3 x10^3/uL (1.8-7.7); NEUT % 75 % (31-73); PLATELET COUNT 236 x10^3/uL (140-400); RED CELL DISTRIBUTION WIDTH 13.3 % (11.5-14.5)
[2021-06-05 19:09] LABS: CALCIUM 8.5 mg/dL (8.5-10.1); CREATININE 1.1 mg/dL (0.7-1.3); GFR 65.4; POTASSIUM 4.1 mmol/L (3.5-5.1)
[2021-06-05 19:15] LABS: ALBUMIN 3.4 g/dL (3.4-5.0); ALBUMIN/GLOBULIN RATIO 0.9 (1.0-1.7); TOTAL BILIRUBIN 0.6 mg/dL (0.2-1.0); TOTAL PROTEIN 7.1 g/dL (6.4-8.2)
[2021-06-05 19:31] LABS: C-REACTIVE PROTEIN 33.7 mg/L (0-3.3)
--- NOTE | 2021-06-05 19:43 | RAD ---
XR KNEE 3 VIEWS_RT, XR RT TIBIA+FIBULA DATE: 06/05/2021 7:06 PM INDICATION: pain anterior right knee, swelling COMPARISON: None. FINDINGS: Bones: There is no evidence of acute fracture or dislocation. Joints: Mild medial compartment degenerative joint space narrowing. There is no joint effusion. Miscellaneous: Prepatellar soft tissue swelling. IMPRESSION: No acute osseous abnormality. Prepatellar soft tissue swelling Electronically signed by: Isaías Matthew MD (06/05/2021 7:40 PM) [facility]
--- NOTE | 2021-06-05 19:43 | RAD ---
XR KNEE 3 VIEWS_RT, XR RT TIBIA+FIBULA DATE: 06/05/2021 7:06 PM INDICATION: pain anterior right knee, swelling COMPARISON: None. FINDINGS: Bones: There is no evidence of acute fracture or dislocation. Joints: Mild medial compartment degenerative joint space narrowing. There is no joint effusion. Miscellaneous: Prepatellar soft tissue swelling. IMPRESSION: No acute osseous abnormality. Prepatellar soft tissue swelling Electronically signed by: Isaías Matthew MD (06/05/2021 7:40 PM) [facility]
--- NOTE | 2021-06-05 20:22 | RAD ---
EXAMINATION: RIGHT LOWER EXTREMITY - UNILATERAL VENOUS DOPPLER. Technique: Ultrasound evaluation of the right lower extremity was performed from the groin to the upp er calf with childers scale, spectral and color doppler evaluation. Indication: Leg swelling Comparison: None Findings: There is normal venous flow and compressibility of right common femoral vein, femoral vein, popliteal vein, and visualized proximal calf veins. Fluid collection is seen overlying the anteromedial aspect of the right knee. Impression: 1. No evidence for deep vein thrombosis of right lower extremity from the level of the calf veins to the groins. 2. Fluid collection is seen overlying the anteromedial aspect of the right knee. Electronically signed by: Aramis Dugan MD (06/05/2021 8:20 PM) [facility]
[2021-06-05 20:32] VITALS: BP 147/67
[2021-06-05] MEDS ORDERED: SULF1TAB24 PO (20:56)
--- NOTE | 2021-06-05 20:57 | PHYS DOC ---
Past Medical History Past Medical History: High Cholesterol Additional Past Medical Histor: PARKINSONS, night terrors Past Surgical History: Other Additional Past Surgical Histo: hernia repair, cornea transplant Smoking Status: Former Smoker Alcohol Use: None Drug Use: None Adult General Chief Complaint Chief Complaint: KNEE SWELLING HPI HPI The patient is a 76-year-old male with a history of Parkinson's disease on carbidopa/levodopa. He presents for evaluation of 2 days of right lower leg swelling in association with mild discomfort and mild redness. Associated painless swelling of the right knee medially. There is some bruising to the upper pretibial area; patient does not recollect any specific injury but acknowledges that "I might have banged it on something." Patient is able to ambulate without difficulty on the leg in question. States discomfort localizes to the lower pretibial area and is mild. No fevers, nausea or vomiting, abd ominal pain of any kind, flank pain, midline back pain, dysuria, hematuria, polyuria or oliguria, groin pain, loss of bowel or bladder control, saddle anesthesia, new lower extremity weakness, numbness or tingling, new urinary retention, use of intravenous illegal drugs. Patient is alert, pleasantly and appropriately interactive and in no acute distress with appropriate vital signs upon initial evaluation here in the emergency department. Review of Systems Review of Systems A 12 point review of systems was completed and was negative except where noted in HPI above. Current Medications Current Medications Current Medications Medications (Trade) Dose Ordered Sig/Chasity Start Time Stop Time Status Last Admin Dose Admin Acetaminophen (Tylenol) 1,000 mg 1X ONCE 06/05/21 18:45 06/05/21 18:46 DC 06/05/21 18:45 1,000 MG Trimethoprim/ Sulfamethoxazole (Bactrim Ds) 1 tab 1X ONCE 06/05/21 21:00 06/05/21 21:01 DC Allergies Allergies Allergies Coded Allergies Type Severity Reaction Last Updated Verified No Known Drug Allergies 03/14/18 No Physical Exam Physical Exam 76-year-old male appearing nontoxic and in no acute distress. Head is normocephalic and atraumatic. Neck is supple and nontender. Oropharynx is moist. Lungs are clear to auscultation at all stations. There is a normal S1 and S2 without rubs or gallops and capillary refill is appropriate, less than 2 seconds globally. Abdomen is soft, nontender nondistended. Skin is warm and dry without cyanosis, clubbing or edema. Psychiatrically, the patient demonstrates appropriate mood and affect and is alert. Evaluation of the extremities reveals BUEs and BLEs neurovascularly intact distally with strength out of 5, sensation intact light touch in all nerve distributions, radial, DP and PT pulses 2+ and equal bilaterally, capillary refill less than 2 seconds, hands and feet warm and well-perfused. There is mild 1+ nonpitting edema to the lower pretibial area on the medial right side. There is some very mild as sociated erythema to this area only. This is not meaningfully tender to palpation. There is some mild bruising to the right upper pretibial area medially. This area is not tender to palpation. There is a mild anterior medial knee joint effusion. Patient has no discomfort with active and passive full range of motion at the right knee. There is no joint irritability to the knee. There is no erythema to the knee joint. No discomfort with ranging of any other joint of the right lower extremity. Current Patient Data Vital Signs Vital Signs Date Time Temp Pulse Resp B/P (MAP) Pulse Ox O2 Delivery O2 Flow Rate FiO2 06/05/21 18:11 98.5 75 18 108/53 (71) 95 98.5 Lab Values Laboratory Tests Test 06/05/21 18:45 White Blood Count 7.0 x10^3/uL (4.0-11.0) Red Blood Count 3.70 x10^6/uL (4.30-5.70) L Hemoglobin 12.6 g/dL (13.0-17.5) L Hematocrit 36.9 % (39.0-53.0) L Mean Corpuscular Volume 100 fL (79-100) Mean Corpuscular Hemoglobin 34 pg (25-35) Mean Corpuscular Hemoglobin Concent 34 g/dL (31-37) Red Cell Distribution Width 13.3 % (11.5-14.5) Platelet Count 236 x10^3/uL (140-400) Neutrophils (%) (Auto) 75 % (31-73) H Lymphocytes (%) (Auto) 16 % (24-48) L Monocytes (%) (Auto) 6 % (0-9) Eosinophils (%) (Auto) 2 % (0-3) Basophils (%) (Auto) 1 % (0-3) Neutrophils # (Auto) 5.3 x10^3/uL (1.8-7.7) Lymphocytes # (Auto) 1.1 x10^3/uL (1.0-4.8) Monocytes # (Auto) 0.4 x10^3/uL (0.0-1.1) Eosinophils # (Auto) 0.2 x10^3/uL (0.0-0.7) Basophils # (Auto) 0.0 x10^3/uL (0.0-0.2) Erythrocyte Sedimentation Rate 14 (0-15) Sodium Level 137 mmol/L (136-145) Potassium Level 4.1 mmol/L (3.5-5.1) Chloride Level 102 mmol/L (98-107) Carbon Dioxide Level 30 mmol/L (21-32) Anion Gap 5 (6-14) L Blood Urea Nitrogen 17 mg/dL (8-26) Creatinine 1.1 mg/dL (0.7-1.3) Estimated GFR (Cockcroft-Gault) 65.4 BUN/Creatinine Ratio 15 (6-20) Glucose Level 95 mg/dL (70-99) Calcium Level 8.5 mg/dL (8.5-10.1) Total Bilirubin 0.6 mg/dL (0.2-1.0) Aspartate Amino Transferase (AST) 12 U/L (15-37) L Alanine Aminotransferase (ALT) 7 U/L (16-63) L Alkaline Phosphatase 57 U/L (46-116) Troponin I High Sensitivity 6 ng/L (4-75) C-Reactive Protein, Quantitative 33.7 mg/L (0-3.3) H XA-Vat-B-Type Natriuretic Peptide 166 pg/mL (0-124) H Total Protein 7.1 g/dL (6.4-8.2) Albumin 3.4 g/dL (3.4-5.0) Albumin/Globulin Ratio 0.9 (1.0-1.7) L Procalcitonin < 0.10 ng/mL (0.00-0.10) Laboratory Tests 06/05/21 18:45 Laboratory Tests 06/05/21 18:45 EKG EKG Sinus rhythm, rate 77, no acute ST elevation or depression, MI 208, QRS 100, QTc 432, EP interpretation. Nonischemic tracing, intervals appropriate. Radiology/Procedures Radiology/Procedures XR KNEE 3 VIEWS_RT, XR RT TIBIA+FIBULA DATE: 06/05/2021 7:06 PM INDICATION: pain anterior right knee, swelling COMPARISON: None. FINDINGS: Bones: There is no evidence of acute fracture or dislocation. Joints: Mild medial compartment degenerative joint space narrowing. There is no joint effusion. Miscellaneous: Prepatellar soft tissue swelling. IMPRESSION: No acute osseous abnormality. Prepatellar soft tissue swelling Electronically signed by: Dwayne Mattehw MD (06/05/2021 7:40 PM) [facility] DICTATED and SIGNED BY: DWAYNE MATTHEW MD DATE: 06/05/211939 EXAMINATION: RIGHT LOWER EXTREMITY - UNILATERAL VENOUS DOPPLER. Technique: Ultrasound evaluation of the right lower extremity was performed from the groin to the upper calf with childers scale, spectral and color doppler evaluation. Indication: Leg swelling Comparison: None Findings: There is normal venous flow and compressibility of right common femoral vein, femoral vein, popliteal vein, and visualized proximal calf veins. Fluid collection is seen overlying the anteromedial aspect of the right knee. Impression: 1. No evidence for deep vein thrombosis of right lower extremity from the level of the calf veins to the groins. 2. Fluid collection is seen overlying the anteromedial aspect of the right knee. Electronically signed by: Aramis Toledo MD (06/05/2021 8:20 PM) [facility] DICTATED and SIGNED BY: ARAMIS TOLEDO MD DATE: 06/05/212018 Course & Med Decision Making Course & Med Decision Making Large work-up including labs, plain x-rays, EKG and venous Doppler ultrasound of the right lower extremity is unremarkable aside from an isolated elevated CRP. Given the bruising to the patient's medial right upper pretibial area, I suspect that his knee joint effusion and the findings on his right lower leg are probably reactive to an injury. However, given mild discomfort to the lower pretibial area and mild erythema there, not unreasonable to cover with Bactrim for the possibility of a cellulitis. No evidence of emergency condition is identified. Will discharge home with instructions to follow-up very closely with primary in the next 1 to 2 days and return to the emergency department right away if symptoms worsen or if other new symptoms of concern develop. All questions are answered. Dragon Disclaimer Fransico Disclaimer This electronic medical record was generated, in whole or in part, using a voice recognition dictation system. Departure Departure Impression: Primary Impression: Acute pain of right lower extremity Additional Impression: Knee joint effusion Disposition: HOME / SELF CARE / HOMELESS Condition: STABLE Referrals: ANTOINE HALL MD (PCP) Patient Instructions: Knee Effusion Additional Instructions: Follow-up very closely with your primary care doctor in the office in the next 1 to 2 days for a reevaluation of your symptoms and a discussion of next best steps in care. Drink plenty of fluids to stay hydrated and get plenty of rest. Rest, ice and elevate your leg as we discussed. Take the Bactrim antibiotic twice a day for the next 10 days to address the possibility of infection. You may take a 500 mg extract Tylenol every 6 hours as needed for any discomfort. Return to the emergency department right away as we discussed for worsening symptoms of any kind or with any other new symptoms of concern. Scripts Sulfamethoxazole/Trimethoprim (BACTRIM DS TABLET) 1 Each Tablet 1 TAB PO BID for infection for 10 Days, #20 TAB Prov: TESS HU MD 06/05/21 Problem Qualifiers Additional Impression: Knee joint effusion Laterality: right Qualified Codes: M25.461 - Effusion, right knee TESS HU MD Jun 05, 2021 20:57
[2021-06-05] MEDS ORDERED: SMZ/TMP 800/160MG TABLET. PO ONE (21:00)
--- NOTE | 2021-06-07 17:24 | EKG ---
[facility] [address] [place] [address] Test Date: 2021-06-05 Test Time: 18:44:00 Pat Name: SOFY MCCRARY Department: Room: Gender: M [employer]: : [id number] Requested By: TESS HU Order Number: [id number] Reading MD: Measurements Intervals [place] Rate: 77 P: 55 WI: 208 QRS: -46 QRSD: 100 T: 68 QT: 380 QTc: 432 Interpretive Statements SINUS RHYTHM ABNORMAL LEFT AXIS DEVIATION LEFT ANTERIOR FASCICULAR BLOCK INCOMPLETE RIGHT BUNDLE BRANCH BLOCK QRS(T) CONTOUR ABNORMALITY CONSIDER ANTEROSEPTAL MYOCARDIAL DAMAGE T ABNORMALITY IN HIGH LATERAL LEADS ABNORMAL ECG RI6.02 No previous ECG available for comparison
== END 2021-06-05 21:15 | disposition home or self-care (01) ==
LOC: ER 18:06
DX: M79.661 Pain in right lower leg (principal); M25.461 Effusion, right knee; E78.00 Pure hypercholesterolemia, unspecified; Z87.891 Personal history of nicotine dependence; Z98.890 Other specified postprocedural states; G20 Parkinson's disease
CPT/HCPCS: 36415; 73562; 73590; 80053; 83880; 84145; 84484; 85025; 85651; 86140; 93005; 93971; 99285-25